=== PATIENT | female | born 1980 | race Caucasian/White ===

== ENCOUNTER 2016-05-25 09:20 | Emergency (ER) | payer SELFPAY ==
[~2016-05-25] VITALS: Ht 167.6 cm; Wt 59.5 kg
[~2016-05-25 09:20] MED LIST: ALBU8.5H3 INH; DIVA500T31 PO; HYDR-4246 PO; ONDA4TAB7 PO
[2016-05-25 09:25] VITALS: Ht 167.6 cm; Wt 59.5 kg
--- OUTSIDE RECORDS SUMMARY | 2016-05-25 09:32 | XMS REPORT | Referral Summary ---
Author Author [facility] Organization [facility] Address Unknown Phone Unavailable Care Team Providers Care Desk Pen Set Assembler Name Role Phone Page, B Primary Care Physician [phone] Encounter VC Date(s): 11/11/14 - 11/11/14 [facility] [address] [place] [address] Discharge Diagnosis: Low back pain Discharge Disposition: 01-Home or Self Care Attending Physician: Han Bob MD Admitting Physician: Han Bob MD Vital Signs Most recent to 1 oldest [Reference Range]: Temperature Oral 36.3 degC [35.8-37.3 degC] (11/11/14 5:29 PM) Peripheral Pulse 105 bpm Rate [60-100 bpm] *HI* (11/11/14 5:29 PM) Respiratory Rate 24 br/min [14-20 br/min] *HI* (11/11/14 5:29 PM) Blood Pressure 110/66 mmHg [90-140/60-90 mmHg] (11/11/14 5:29 PM) SpO2 98 % (11/11/14 5:29 PM) Problem List Condition Effective Dates Status Health Status Informant Asthma(Confirmed) Active patient Chronic back Active patient pain(Confirmed) Ovarian Active patient cyst(Confirmed) Epilepsy(Confirmed) Active patient Hernia(Confirmed) Active patient Allergies, Adverse Reactions, Alerts Substance Reaction Severity Status penicillin anaphylaxis Severe Active Anaphylactic reaction traMADol triggers siezure activity Severe Active Adverse Reaction Seizure Medications Advair Diskus 100 mcg-50 mcg inhalation powder puffs, Inhalation, BID, 0 Refill(s) Start Date: 09/26/13 Status: Ordered cyclobenzaprine 10 mg oral tablet 10 mg 1 tabs, Oral, TID, as needed for spasm, X 5 days, # 15 tabs, 0 Refill(s) Start Date: 11/11/14 Stop Date: 11/16/14 Status: Ordered ibuprofen 800 mg oral tablet 800 mg 1 tabs, Oral, TID, as needed for pain, # 30 tabs, 0 Refill(s) Start Date: 11/11/14 Stop Date: 11/21/14 Status: Ordered Levsin 0.125 mg oral tablet 0.125 mg 1 tabs, Oral, QID, # 120 tabs, 0 Refill(s) Start Date: 10/01/14 Status: Ordered Petrolia 7.5 mg-325 mg oral tablet 1 tabs, Oral, q6hr, Pain Moderate (4-6), 0 Refill(s), Indication: abdominal pain Start Date: 02/10/14 Status: Ordered Percocet 5/325 oral tablet tabs, Oral, q6hr, 0 Refill(s) Start Date: 07/18/14 Status: Ordered Premarin 1.25 mg, Oral, Daily, 0 Refill(s) Start Date: 08/03/14 Status: Ordered ProAir HFA puffs, Inhalation, QID, 0 Refill(s) Start Date: 09/26/13 Status: Ordered SEROquel 100 mg oral tablet 200 mg 2 tabs, Oral, Daily, 0 Refill(s) Start Date: 08/03/14 Status: Ordered Zofran ODT 4 mg oral tablet, disintegrating 4 mg 1 tabs, Oral, q8hr, # 10 tabs, 0 Refill(s) Start Date: 10/01/14 Status: Ordered Results No data available for this section Immunizations No data available for this section Procedures Procedure Date Related Diagnosis Body Site Examination Under Anesthesia1 08/03/14 Sigmoidoscopy Flexible Dilatation2 08/03/14 Colonoscopy3 02/10/14 Esophagogastroduodenoscopy - SN4 02/10/14 Examination Under Anesthesia5 02/10/14 Bilateral tubal ligation section Colostomy Exploratory laparotomy hysterectomy6 Repair of rectocele Take-down of colostomy 1auto-populated from documented surgical case 2auto-populated from documented surgical case 3auto-populated from documented surgical case 4auto-populated from documented surgical case 5auto-populated from documented surgical case 2012 Social History Social History Type Response Smoking Status Current every day smoker; Tobacco use per day: Less than Pack Assessment and Plan No data available for this section
--- OUTSIDE RECORDS SUMMARY | 2016-05-25 09:32 | XMS REPORT | Continuity of Care Document ---
Author Author [facility] Organization [facility] Address Unknown Phone Unavailable Care Team Providers Care Director Trust Name Role Phone OTHER Primary Care Physician [phone] Insurance Providers Payer Name Policy Number Subscriber Name Relationship [employer] [id number] Indigo Gee 16 Self Problems Medical Problems Problem Onset Date Status ABDOMINAL PAIN - ACUTE ON CHRONIC Unknown Active ABD PAIN, URI, CONSTIPATION Unknown Active ABDOMINAL PAIN - ACUTE ON CHRONIC Unknown Active Constipation Unknown Active Viral Infection not otherwise specified Unknown Active Contusion Unknown Active Hernia Unknown Active Vomiting Unknown Active Abdominal pain, chronic, generalized Unknown Active Hernia Unknown Active Sacral fracture, closed Unknown Active Abdominal pain Unknown Active Nausea Unknown Active Sacral fracture, closed Unknown Active Abdominal pain Unknown Active Nausea and vomiting Unknown Active Medications Medication Dose Route Sig Days/Qty Instructions Order Date Discontinued Date Status Divalproex Sodium 1,000 Mg PO TWICE A DAY 07/19/13 Active Albuterol Sulfate 2 Puff INH NEEDED PRN SHORTNESS OF AIR 09/28/13 Active Ondansetron 1 Tab PO Q6H/0300,0900,1500,2100 PRN NAUSEA &/OR VOMITING 20 Qty Oral disintegrating tablet 09/28/13 Active Hydrocodone/Acetaminophen 1-2 Tab PO Every 6 Hours PRN PAIN 30 Qty 01/01 Active Social History Social History Problem Response Recorded Date/Time Smoking Status Current every day smoker 07/19/2013 7:05pm Hx Substance Use No 09/28/2013 2:04pm Hx Alcohol Use No 09/28/2013 2:04pm Query Response Start Date Stop Date Smoking Status Current every day smoker Hospital Discharge Instructions No hospital discharge instructions. Plan of Care No plan of care. Functional Status Query Response Date Recorded Physical Hygiene Self September 28, 2013 2:04pm Disabilities None September 28, 2013 2:04pm Devices Used None September 28, 2013 2:04pm Dressing Self September 28, 2013 2:04pm Ambulation Self September 28, 2013 2:04pm Diet Self September 28, 2013 2:04pm Mental Status Alert Oriented September 28, 2013 2:04pm Disabilities None September 28, 2013 2:04pm Devices Used None September 28, 2013 2:04pm Physical Hygiene Self September 28, 2013 2:04pm Dressing Self September 28, 2013 2:04pm Ambulation Self September 28, 2013 2:04pm Diet Self September 28, 2013 2:04pm Allergies, Adverse Reactions, Alerts Allergen Type Severity Reaction Status Last Updated Penicillin Allergy Unknown Active 09/28/13 Tramadol Allergy Unknown Active 09/28/13 Immunizations Name Given Type Hx Influenza Vaccination Y FALL 2012 Historical Hx Influenza Vaccination Y FALL 2012 Historical Vital Signs Acute Vital Signs Vital Response Date/Time Temperature (Fahrenheit) 98.4 deg F (96.8 - 99.1) Temperature (Calculated Celsius) 36.66711 degrees C (36.0 - 37.3) Pulse Rate (adult) 73 bpm (60 - 100) Respiratory Rate 14 breaths/min (10 - 20) O2 Sat by Pulse Oximetry 99 % (90 - 100) Blood Pressure 106/56 mm Hg Height 5 ft 5 in Weight 121 lb Body Mass Index 20.0 kg/m^2 Results Test Source Date Result Interp. Ref. Range Comments Alanine Aminotransferase (ALT/SGPT) September 28, 2013 3:23pm 26 U/L N 9- 52 Albumin September 28, 2013 3:23pm 4.2 G/DL N 3.5-5.0 Albumin/Globulin Ratio September 28, 2013 3:23pm 1.6 RATIO N 1.1-2.2 Alkaline Phosphatase September 28, 2013 3:23pm 69 U/L N 38-126 Amylase Level September 28, 2013 3:23pm 53 U/L N 30-110 Anion Gap September 28, 2013 3:23pm 10 MEQ/L N 5-15 Aspartate Amino Transf (AST/SGOT) September 28, 2013 3:23pm 17 U/L N 14-36 BUN/Creatinine Ratio September 28, 2013 3:23pm 16 RATIO N 6-26 Basophils # (Auto) September 28, 2013 3:23pm 0.0 T/MM3 N 0-0.2 Basophils (%) (Auto) September 28, 2013 3:23pm 0.4 % N 0-2 Blood Urea Nitrogen September 28, 2013 3:23pm 13.0 MG/DL N 7-17 Calcium Level September 28, 2013 3:23pm 9.7 MG/DL N 8.4-10.2 Calculated Osmolality September 28, 2013 3:23pm 273 MOSM/KG N 261-280 Carbon Dioxide Level September 28, 2013 3:23pm 25 MEQ/L N 22-30 Chloride Level September 28, 2013 3:23pm 107 MEQ/L N 98-107 Creatinine September 28, 2013 3:23pm 0.8 MG/DL N 0.7-1.2 Eosinophils # (Auto) September 28, 2013 3:23pm 0.1 T/MM3 N 0-0.5 Eosinophils (%) (Auto) September 28, 2013 3:23pm 1.6 % N 0-4 Globulin September 28, 2013 3:23pm 2.6 G/DL N 2.4-3.6 Glucose Level September 28, 2013 3:23pm 91 MG/DL N 65-110 Group A Streptococcus Screen February 21, 2013 2:15pm Negative - Strep culture confirmation to follow Hematocrit September 28, 2013 3:23pm 38.8 % N 36-46 Hemoglobin September 28, 2013 3:23pm 13.3 GM/DL N 12-16 Influenza Type A Antigen February 21, 2013 2:15pm Negative - Negative for Flu A protein antigen. Assay sensitivity isbetween 65-83%. A negative result does not exclude influenza virus infection. "Influenza FA" may be ordered if clinical presentation warrants confirmatory testing. Influenza Type B Antigen February 21, 2013 2:15pm Negative - Negative for Flu B protein antigen. Assay sensitivity isbetween 65-83%. A negative result does not exclude influenza virus infection. "Influenza FA" may be ordered if clinical presentation warrants confirmatory testing. Lipase September 28, 2013 3:23pm 70 U/L N 23-300 Lymphocytes # (Auto) September 28, 2013 3:23pm 2.1 T/MM3 N 1-4.8 Lymphocytes (%) (Auto) September 28, 2013 3:23pm 29.3 % N 23-45 Mean Corpuscular Hemoglobin September 28, 2013 3:23pm 32.0 UUG N 26-34 Mean Corpuscular Hemoglobin Concent September 28, 2013 3:23pm 34.3 GM/DL N 31-37 Mean Corpuscular Volume September 28, 2013 3:23pm 93.3 UM3 N 80-100 Mean Platelet Volume September 28, 2013 3:23pm 10.2 UM3 N 9.4-12.4 Monocytes # (Auto) September 28, 2013 3:23pm 0.4 T/MM3 N 0-0.8 Monocytes (%) (Auto) September 28, 2013 3:23pm 5.7 % N 0-9.0 Neutrophils # (Auto) September 28, 2013 3:23pm 4.4 T/MM3 N 1.8-7.7 Neutrophils (%) (Auto) September 28, 2013 3:23pm 62.9 % N 33-66 Platelet Count September 28, 2013 3:23pm 235 T/MM3 N 130-400 Potassium Level September 28, 2013 3:23pm 4.0 MEQ/L N 3.6-5 RDW Standard Deviation September 28, 2013 3:23pm 39.7 FL N 36.9-50.2 Red Blood Count September 28, 2013 3:23pm 4.16 M/MM3 N 4.00-5.20 Sodium Level September 28, 2013 3:23pm 142 MEQ/L N 134-144 Total Bilirubin September 28, 2013 3:23pm 0.60 MG/DL N 0.20-1.30 Total Protein September 28, 2013 3:23pm 6.8 G/DL N 6.3-8.2 Urine Bacteria September 16, 2013 9:40pm Trace H - Has specimen been collected/obtained? Y Urine Bilirubin September 28, 2013 3:30pm Negative - Has specimen been collected/obtained? Y Urine Blood September 28, 2013 3:30pm Negative - Has specimen been collected/obtained? Y Urine Collection Type September 28, 2013 3:30pm Voided-not cc-midstr - Has specimen been collected/obtained? Y Urine Color September 28, 2013 3:30pm Yellow - Has specimen been collected/obtained? Y Urine Glucose (UA) September 28, 2013 3:30pm Negative - Has specimen been collected/obtained? Y Urine Ketones September 28, 2013 3:30pm Negative - Has specimen been collected/obtained? Y Urine Leukocyte Esterase September 28, 2013 3:30pm Negative - Has specimen been collected/obtained? Y Urine Mucus September 16, 2013 9:40pm Present - Has specimen been collected/obtained? Y Urine Nitrite September 28, 2013 3:30pm Negative - Has specimen been collected/obtained? Y Urine Protein September 28, 2013 3:30pm Negative - Has specimen been collected/obtained? Y Urine RBC September 16, 2013 9:40pm 0-1 /HPF - Has specimen been collected /obtained? Y Urine Specific [place] September 28, 2013 3:30pm 1.020 - Has specimen been collected/obtained? Y Urine Squamous Epithelial Cells September 16, 2013 9:40pm 0-5 - Has specimen been collected/obtained? Y Urine Turbidity September 28, 2013 3:30pm Sl cloudy - Has specimen been collected/obtained? Y Urine Urobilinogen September 28, 2013 3:30pm 1.0 EU/DL - Has specimen been collected/obtained? Y Urine WBC September 16, 2013 9:40pm 0-1 /HPF - Has specimen been collected /obtained? Y Urine pH September 28, 2013 3:30pm 7.5 - Has specimen been collected/ obtained? Y Valproic Acid (Depakene) Level February 21, 2013 2:00pm < 10.0 UG/ML L 50 -120 White Blood Count September 28, 2013 3:23pm 7.0 T/MM3 N 4.5-11.0 Chemistry Specimen Hemolysis September 28, 2013 3:23pm < 15 0-25 0-25: No Hemolysis.26-70: Slight Hemolysis - can falsely elevate K and Urine Protein. 71-285: Moderate Hemolysis - can falsely elevate K, Troponin I, CA 19-9, PTH, CSF GLucose, and Urine Protein, and can falsely decrease Phenytoin. 286-999: Gross Hemolysis - can falsely elevate K, Troponin I, CA 19-9, PTH, CSF Glucose, and Urine Protine, and can falsely decrease Phenytoin. Recommend specimen recollection. Urinalysis Comment September 28, 2013 3:30pm Microscopic not ind. - Has specimen been collected/obtained? Y Turbidity September 28, 2013 3:23pm < 20 0-20 Glomerular Filtration Rate Calc September 28, 2013 3:23pm 82 - Immature Granulocyte # (Auto) September 28, 2013 3:23pm 0.01 T/MM3 N 0.00- 0.03 Immature Granulocyte % (Auto) September 28, 2013 3:23pm 0.1 % N 0.0-0.5 Icterus Index September 28, 2013 3:23pm < 2 0-7 Group A Streptococcus Culture Throat February 21, 2013 2:28pm Name: INDIGO GEE Unit #: [id number] : 1980 Sex: F Loc / Svc: ED DOS: 09/28/13 Signed Report #: [id number] DIAGNOSTIC IMAGING REPORT TYPE OF EXAM: ABDOMEN ACUTE (INC. CHEST) Dictated By: PORTER CARRANZA MD INDICATION: ITS.REASON: vomiting and abdominal for 4 days ABDOMEN ACUTE (INC. CHEST): Comparison: September 16, 2013 FINDINGS: The lungs are clear. There is no abnormal airspace opacity, pleural effusion or pneumothorax identified. The heart size, pulmonary vasculature and mediastinum are within normal limits. There is no free air on the upright view. The bowel gas pattern is nonobstructive and nonspecific. Gas is seen in nondilated small and large bowel to the level of the rectum. Moderate stool is seen throughout the colon. Surgical suture and clips in the pelvis. IMPRESSION: 1. No acute cardiopulmonary abnormality. 2. No evidence of acute obstruction or free air. . 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
--- OUTSIDE RECORDS SUMMARY | 2016-05-25 09:32 | XMS REPORT | Referral Summary ---
Author Author [facility] Organization [facility] Address Unknown Phone Unavailable Care Team Providers Care Organic Search Lead Name Role Phone Page, B Primary Care Physician [phone] Encounter VC Date(s): 08/21/14 - 08/21/14 [facility] [address] [place] [address] Discharge Diagnosis: Chronic abdominal pain Final: ABDOMINAL PAIN, OTHER SPECIFIED SITE; MULTIPLE SITES Final: Other chronic pain Final: CONSTIPATION, UNSPECIFIED Discharge Disposition: 01-Home or Self Care Attending Physician: Harvinder Renee MD Admitting Physician: Harvinder Renee MD Vital Signs Most recent to 1 oldest [Reference Range]: Temperature Oral 36.5 degC [35.8-37.3 degC] (08/21/14 10:21 AM) Peripheral Pulse 59 bpm Rate [60-100 bpm] *LOW* (08/21/14 11:46 AM) Respiratory Rate 16 br/min [14-20 br/min] (08/21/14 11:46 AM) Blood Pressure 101/69 mmHg [90-140/60-90 mmHg] (08/21/14 11:46 AM) SpO2 97 % (08/21/14 11:46 AM) Problem List Condition Effective Dates Status Health [...] 0 Refill(s) Start Date: 09/26/13 Status: Ordered ibuprofen 800 mg oral tablet 800 mg 1 tabs, Oral, TID, as needed for pain, # 30 tabs, 0 Refill(s) Start Date: 11/11/14 Stop Date: 11/21/14 Status: Ordered Levsin 0.125 mg oral tablet 0.125 mg 1 tabs, Oral, QID, # 120 tabs, 0 Refill(s) Start Date: 10/01/14 Status: Ordered Tamms 7.5 mg-325 mg oral tablet 1 tabs, [...] Refill(s) Start Date: 10/01/14 Status: Ordered Results Hematology Most recent to 1 oldest [Reference Range]: WBC [4.8-10.8 5.2 10*3/uL 10*3/uL] (08/21/14 10:54 AM) RBC [4.00-5.20 4.40 10*6/uL 10*6/uL] (08/21/14 10:54 AM) Hgb [12.0-16.0 13.8 gm/dL gm/dL] (08/21/14 10:54 AM) Hct [37.0-47.0 %] 40.3 % (08/21/14 10:54 AM) MCV [82.0-99.0 fL] 91.6 fL (08/21/14 10:54 AM) MCH [27.0-32.0 pg] 31.4 pg (08/21/14 10:54 AM) MCHC [32.0-36.0 34.2 gm/dL gm/dL] (08/21/14 10:54 AM) RDW [11.5-14.5 %] 12.5 % (08/21/14 10:54 AM) Platelet [150-400 200 10*3/uL 10*3/uL] (08/21/14 10:54 AM) MPV [9.4-12.4 fL] 10.5 fL (08/21/14 10:54 AM) Immature 0.2 % Granulocytes (08/21/14 10:54 AM) [0.0-1.0 %] Neutrophils [51-75 40 % %] *LOW* (08/21/14 10:54 AM) Lymphocytes [20-46 50 % %] *HI* (08/21/14 10:54 AM) Monocytes [4-11 %] 7 % (08/21/14 10:54 AM) Eosinophils [0-4 %] 4 % (08/21/14 10:54 AM) Basophils [0-2 %] 0 % (08/21/14 10:54 AM) Neutro Absolute 2.08 10*3 [1.90-7.00 10*3] (08/21/14 10:54 AM) Lymph Absolute 2.60 10*3 [0.80-3.30 10*3] (08/21/14 10:54 AM) [place] Absolute 0.34 10*3 [0.30-1.00 10*3] (08/21/14 10:54 AM) Eos Absolute 0.20 10*3 [0.00-0.50 10*3] (08/21/14 10:54 AM) Baso Absolute 0.02 10*3 [0.00-0.20 10*3] (08/21/14 10:54 AM) Nucleated RBC 0.0 /100 WBC Automated [0 /100 (08/21/14 10:54 AM) WBC] Chemistry Most recent to 1 oldest [Reference Range]: Sodium Lvl [136-144 139 mEq/L mEq/L] (08/21/14 10:54 AM) Potassium Lvl 4.0 mEq/L [3.6-5.1 mEq/L] (08/21/14 10:54 AM) Chloride [99-109 107 mEq/L mEq/L] (08/21/14 10:54 AM) CO2 [22-32 mEq/L] 27 mEq/L (08/21/14 10:54 AM) AGAP [3-20] 5 (08/21/14 10:54 AM) BUN [4-20 mg/dL] 9 mg/dL (08/21/14 10:54 AM) Glucose Lvl [70-100 76 mg/dL mg/dL] (08/21/14 10:54 AM) Creatinine Lvl 0.83 mg/dL [0.44-1.03 mg/dL] (08/21/14 10:54 AM) eGFR [>60] >60 1 (08/21/14 10:54 AM) Calcium Lvl 9.4 mg/dL [8.6-10.0 mg/dL] (08/21/14 10:54 AM) Albumin Lvl [3.5-4.8 3.6 gm/dL gm/dL] (08/21/14 10:54 AM) Total Protein 6.1 gm/dL [6.1-7.9 gm/dL] (08/21/14 10:54 AM) Globulin [1.9-4.3 2.5 gm/dL gm/dL] (08/21/14 10:54 AM) ALT [14-54 U/L] 12 U/L *LOW* (08/21/14 10:54 AM) AST [15-41 U/L] 17 U/L (08/21/14 10:54 AM) Alk Phos [26-104 64 U/L U/L] (08/21/14 10:54 AM) Bili Total [0.2-1.2 0.8 mg/dL 2 mg/dL] (08/21/14 10:54 AM) Lipase Lvl [8-48 24 U/L U/L] (08/21/14 10:54 AM) 1Result Comment: Multiply eGFR results by 1.21 for race. 2Result Comment: Naproxen, specifically the metabolite O-desmethylnaproxen, may cause spurious elevation in Total Bilirubin levels. Urinalysis Most recent to 1 oldest [Reference Range]: UA Color Yellow (08/21/14 10:53 AM) UA Appear Turbid *ABN* (08/21/14 10:53 AM) UA pH [5.0-8.0] 9.0 *HI* (08/21/14 10:53 AM) UA Leuk Est Negative [Negative] (08/21/14 10:53 AM) UA Nitrite Negative [Negative] (08/21/14 10:53 AM) UA Protein Negative [Negative] (08/21/14 10:53 AM) UA Glucose Negative [Negative] (08/21/14 10:53 AM) UA Ketones Negative [Negative] (08/21/14 10:53 AM) UA Urobilinogen 1.0 mg/dL [<1.0 mg/dL] (08/21/14 10:53 AM) UA Bili [Negative] Negative (08/21/14 10:53 AM) UA Blood [Negative] Negative (08/21/14 10:53 AM) UA Spec Grav 1.017 [1.003-1.030] (08/21/14 10:53 AM) Type Clean Catch (08/21/14 10:53 AM) Immunizations No data available for this section [...] surgical case 5auto-populated from documented surgical case 6April 2012 Social History Social History Type Response Smoking Status Current every day smoker; Tobacco use per day: Less than Pack Assessment and Plan No data available for this section
--- OUTSIDE RECORDS SUMMARY | 2016-05-25 09:32 | XMS REPORT ---
Author Author [place]/[facility], [facility] - Organization Unknown Address Unknown Phone Unavailable Allergies, Adverse Reactions, Alerts * Toradol causes Mild Adverse Reaction. * tramadol causes Mild Adverse Reaction. * Penicillins causes Severe anaphylaxis. * No Latex Allergy. * No IV Contrast Allergy. * No Known Food Allergies. Problems * Benzodiazepine Overdose* Status:Active. * Drug Dependence* Status:Inactive. * Drug Overdose - Suicide* Status:Active. * Falls* Status:Inactive. * Fluid Volume Impairment* Status:Active. * Hysterectomy* Status:Resolved. * Pain* Status:Active. * Substance Abuse* Status:Inactive. Procedures No Procedures Documented. Medication It is the responsibility of the patient or patient telemarketing representative to confirm the list of medications with either the patient's personal care provider or the patient's follow-up care provider to ensure the patient has an appropriate list of medications to take at home. Discharge medications* estradiol 2 mg Tablet, Ordered By: MARSHALL PRINGLE Directions: 1 tablet oral daily * HYDROcodone-acetaminophen (Lortab) 7.5 mg-500 mg Tablet, Ordered By: MARSHALL PRINGLE Directions: 1 tablet oral every four hours * oxyCODONE-acetaminophen (Percocet) 5 mg-325 mg Tablet, Ordered By: MARSHALL PRINGLE Directions: 1 tablet oral every four hours PRN pain * fluticasone-salmeterol (Advair Diskus) 250 mcg-50 mcg/Dose Disk with Device, Ordered By: MARSHALL PRINGLE Directions: 1 puff by inhalation twice a day * albuterol sulfate (ProAir HFA) 90 mcg HFA Aerosol Inhaler, Ordered By: MARSHALL PRINGLE Directions: 2 to 3 puff by inhalation every four hours PRN shortness of breath * Calcium OTC 1 tablet oral daily; last taken at home: 08/01/2012 AM * Women's Laxative OTC 1 tablet oral daily; last taken at home: 08/01/2012 AM * Advanced Fiber Gummies 2 Gummies oral daily; last taken at home: 08/01/2012 AM * FLUoxetine (PROzac) 40 mg Capsule, Ordered By: MARSHALL PRINGLE Directions: 1 capsule oral daily * divalproex (Depakote ER) 500 mg Tablet Extended Release 24 hr, Ordered By: MARSHALL PRINGLE Directions: 2 tablet oral twice a day * hydrOXYzine pamoate 50 mg Capsule, Ordered By: MARSHALL PRINGLE Directions: 2 capsule oral daily at bedtime PRN anxiety * hydrOXYzine pamoate 50 mg Capsule, Ordered By: MARSHALL PRINGLE Directions: 1 capsule oral every twelve hours PRN anxiety * divalproex 500 mg Tablet Extended Release 24 hr, Ordered By: MARSHALL PRINGLE Directions: 2 tablet oral daily at bedtime * divalproex 500 mg Tablet Extended Release 24 hr, Ordered By: MARSHALL PRINGLE Directions: 1 tablet oral daily Stopped medications* None Results LAB--BEDSIDE TESTING from 08/01/2012 3:23 PMTotal CO2 Venous 23 mEq/L L (25-29 mEq/L) Sodium Venous 140 mEq/L (136-144 mEq/L) Potassium Venous 4.0 mEq/L (3.6-5.1 mEq/L) HGB Venous NPT 8.8 g/dL L (12.0-16.0 g/dL) HCT Venous NPT 26.0 % L (37.0-47.0 %) Glucose Venous 87 mg/dL (70-100 mg/dL) Creatinine Venous NPT 1.1 mg/dL H (0.4-1.0 mg/dL) Venous CL NPT 107 mEq/L (99-109 mEq/L) Calcium Ionized Venous 1.15 mmol/L L (1.19-1.41 mmol/L) BUN Venous NPT 20 mg/dl (4-20 mg/dl) Anion Gap NPT 10 (3-20 ) LAB--BEDSIDE TESTING from 08/01/2012 5:58 PMGlucose NPT 88 mg/dL (70-100 mg/dL) LAB--CHEMISTRY from 08/01/2012 3:25 PMAnion Gap 3 (3-20 ) Albumin 2.6 g/dL L (3.5-4.8 g/dL) Alkaline Phosphatase 38 U/L (26-104 U/L) ALT (SGPT) 21 U/L (14-54 U/L) AST (SGOT) 26 U/L (15-41 U/L) Bilirubin Total 0.4 mg/dL (0.2-1.2 mg/dL) BUN 19 mg/dL (4-20 mg/dL) Calcium 7.6 mg/dL L (8.6-10.0 mg/dL) Chloride 110 mEq/L H (99-109 mEq/L) CO2 27 mEq/L (22-32 mEq/L) Creatinine 0.90 mg/dL (0.44-1.03 mg/dL) eGFR >60 (>60- ) Globulin 2.3 g/dL (1.9-4.3 g/dL) Glucose 90 mg/dL (70-100 mg/dL) Potassium 4.0 mEq/L (3.6-5.1 mEq/L) Sodium 140 mEq/L (136-144 mEq/L) Protein 4.9 g/dL L (6.1-7.9 g/dL) LAB--CHEMISTRY from 08/02/2012 2:56 AMAnion Gap 1 L (3-20 ) Albumin 2.4 g/dL L (3.5-4.8 g/dL) Alkaline Phosphatase 54 U/L (26-104 U/L) ALT (SGPT) 61 U/L H (14-54 U/L) AST (SGOT) 66 U/L H (15-41 U/L) Bilirubin Total 0.4 mg/dL (0.2-1.2 mg/dL) BUN 13 mg/dL (4-20 mg/dL) Calcium 7.6 mg/dL L (8.6-10.0 mg/dL) Chloride 111 mEq/L H (99-109 mEq/L) CO2 26 mEq/L (22-32 mEq/L) Creatinine 0.82 mg/dL (0.44-1.03 mg/dL) eGFR >60 (>60- ) Globulin 2.2 g/dL (1.9-4.3 g/dL) Glucose 114 mg/dL H (70-100 mg/dL) Potassium 3.7 mEq/L (3.6-5.1 mEq/L) Sodium 138 mEq/L (136-144 mEq/L) Protein 4.6 g/dL L (6.1-7.9 g/dL) TSH (with reflex Free T4) 1.01 uIU/mL (0.35-5.50 uIU/mL) LAB--HEMATOLOGY from 08/01/2012 3:25 PMAbsolute Basophils 0.02 THOUS (0.00-0.20 THOUS) Absolute Eosinophils 0.06 THOUS (0.00-0.50 THOUS) Absolute Lymphocytes 1.24 THOUS (0.80-3.30 THOUS) Absolute Monocytes 1.06 THOUS H (0.30-1.00 THOUS) Absolute Neutrophils 5.68 THOUS (1.90-7.00 THOUS) HCT 29.5 % L (37.0-47.0 %) HGB 9.5 g/dl L (12.0-16.0 g/dl) MCH 30.4 pg (27.0-32.0 pg) MCHC 32.2 g/dL (32.0-36.0 g/dL) MCV 94.6 fL (82.0-99.0 fL) MPV 11.2 fL (9.4-12.4 fL) Platelet Count 126 K/uL L (150-400 K/uL) RBC 3.12 M/uL L (4.00-5.20 M/uL) RDW 13.7 % (11.5-14.5 %) WBC 8.1 K/uL (4.8-10.8 K/uL) Basophils 0 % (0-2 %) Eosinophils 1 % (0-4 %) Immature Granulocytes 0.1 % (0.0-1.0 %) Lymphocytes 15 % L (20-46 %) Monocytes 13 % H (4-11 %) Neutrophils 71 % (51-75 %) LAB--HEMATOLOGY from 08/02/2012 2:56 AMHCT 33.1 % L (37.0-47.0 %) HGB 10.3 g/dl L (12.0-16.0 g/dl) MCH 29.7 pg (27.0-32.0 pg) MCHC 31.1 g/dL L (32.0-36.0 g/dL) MCV 95.4 fL (82.0-99.0 fL) MPV 11.6 fL (9.4-12.4 fL) Platelet Count 142 K/uL L (150-400 K/uL) RBC 3.47 M/uL L (4.00-5.20 M/uL) RDW 14.3 % (11.5-14.5 %) WBC 5.6 K/uL (4.8-10.8 K/uL) LAB--TOXICOLOGY & THERAPEUTIC DRUGS from 08/01/2012 3:25 PMAcetaminophen (Tylenol ) Level 19 mcg/mL (10-30 mcg/mL) Salicylate <4 mg/dL (0-30 mg/dL) LAB--TOXICOLOGY & THERAPEUTIC DRUGS from 08/01/2012 4:34 PMAcetaminophen (Tylenol ) Level 15 mcg/mL (10-30 mcg/mL) Valproic Acid <10 ug/mL L (50-125 ug/mL) LAB--TOXICOLOGY & THERAPEUTIC DRUGS from 08/02/2012 2:56 AMAcetaminophen (Tylenol ) Level <10 mcg/mL (10-30 mcg/mL)
--- OUTSIDE RECORDS SUMMARY | 2016-05-25 09:32 | XMS REPORT | Referral Summary ---
Author Author [facility] Organization [facility] Address Unknown Phone Unavailable Care Team Providers Care Bankruptcy Manager Name Role Phone Page, B Primary Care Physician [phone] Encounter VC Date(s): 11/11/14 - 11/11/14 [facility] [address] [place] [address] FG Final: LUMBAGO Final: TOBACCO USE DISORDER Discharge Diagnosis: Low back pain Discharge Disposition: [...] 0 Refill(s) Start Date: 10/01/14 Status: Ordered [place] 7.5 mg-325 mg oral tablet 1 tabs, [...] surgical case 5auto-populated from documented surgical case pril 2012 Social History Social History Type Response Smoking Status Current every day smoker; Tobacco use per day: Less than Pack Assessment and Plan No data available for this section
--- OUTSIDE RECORDS SUMMARY | 2016-05-25 09:32 | XMS REPORT ---
Author Author [place]/[facility], [facility] - Organization Unknown Address Unknown Phone Unavailable Allergies, Adverse Reactions, Alerts * Toradol causes Mild Adverse Reaction. * tramadol causes Mild Adverse Reaction. * Penicillins causes Severe anaphylaxis. * No Latex Allergy. * No IV Contrast Allergy. * No Known Food Allergies. Problems * Drug Dependence* Status:Inactive. * Falls* Status:Inactive. * Fluid Volume Impairment* Status:Active. * Hysterectomy* Status:Resolved. * Pain* Status:Active. * Substance Abuse* Status:Inactive. Procedures No Procedures Documented. Medication It is the responsibility of the patient or patient customer account representative to confirm the list of medications with either the patient's personal care provider or the patient's follow-up care provider to ensure the patient has an appropriate list of medications to take at home. Discharge medications* albuterol sulfate (ProAir HFA) 90 mcg HFA Aerosol Inhaler , Ordered By: RENEA DAWKINS Directions: 2 to 3 puff by inhalation every four hours PRN shortness of breath * divalproex (Depakote ER) 500 mg Tablet Extended Release 24 hr, Ordered By: RENEA DAWKINS Directions: 2 tablet oral twice a day * FLUoxetine (PROzac) 40 mg Capsule, Ordered By: RENEA DAWKINS Directions: 1 capsule oral daily * hydrOXYzine pamoate 50 mg Capsule, Ordered By: RENEA DAWKINS Directions: 1 capsule oral every twelve hours * hydrOXYzine pamoate 50 mg Capsule, Ordered By: RENEA DAWKINS Directions: 2 capsule oral daily at bedtime * fluticasone-salmeterol (Advair Diskus) 250 mcg-50 mcg/Dose Disk with Device, Ordered By: RENEA DAWKINS Directions: 1 puff by inhalation twice a day * ibuprofen 800 mg Tablet, Ordered By: RENEA DAWKINS Directions: 1 tablet oral every eight hours * HYDROmorphone (Dilaudid) 4 mg Tablet, Ordered By: RENEA DAWKINS Directions: 1 tablet oral every four hours PRN pain * estradiol 1 mg Tablet, Ordered By: RENEA DAWKINS Directions: 1 tablet oral daily Stopped medications* ranitidine HCl (ZANtac) 150 mg Tablet Directions: 1 tablet oral daily PRN indigestion Results LAB--BEDSIDE TESTING from 06/05/2012 5:55 AMGlucose NPT 90 mg/dL (70-100 mg/dL) LAB--BEDSIDE TESTING from 06/05/2012 5:58 AMPregnancy Screen, Urine NPT Negative LAB--BLOOD BANK from 06/05/2012 5:40 AMABO and Rh A POS Antibody Screen (Indirect Caprice) NEG LAB--HEMATOLOGY from 06/05/2012 4:01 PMHCT 36.7 % L (37.0-47.0 %) HGB 12.0 g/dl (12.0-16.0 g/dl)
--- OUTSIDE RECORDS SUMMARY | 2016-05-25 09:32 | XMS REPORT | Referral Summary ---
Author Author [facility] Organization [facility] Address Unknown Phone Unavailable Care Team Providers Care Hand Thermal Cutter Name Role Phone Page, B Primary Care Physician [phone] Encounter VC Date(s): 08/06/14 - 08/06/[address] [facility] [address] [place] [address] [phone] Discharge Diagnosis: Abdominal pain Final: ABDOMINAL PAIN, LEFT LOWER QUADRANT Discharge Disposition: 01-Home or Self Care Attending Physician: Marcos Love DO Admitting Physician: Marcos Love DO Vital Signs Most recent to 1 oldest [Reference Range]: Temperature Oral 36.7 degC [35.8-37.3 degC] (08/06/14 12:21 PM) Peripheral Pulse 65 bpm Rate [60-100 bpm] (08/06/14 4:52 PM) Heart Rate Monitored 68 bpm [60-100 bpm] (08/06/14 3:27 PM) Respiratory Rate 16 br/min [14-20 br/min] (08/06/14 4:52 PM) Blood Pressure 102/63 mmHg [90-140/60-90 mmHg] (08/06/14 4:52 PM) SpO2 97 % (08/06/14 4:52 PM) Problem List Condition Effective Dates Status [...] 0 Refill(s) Start Date: 10/01/14 Status: Ordered [place] 7.5 mg-325 mg oral tablet 1 tabs, [...] to 1 oldest [Reference Range]: WBC [4.8-10.8 7.8 10*3/uL 10*3/uL] (08/06/14 12:55 PM) RBC [4.00-5.20 4.25 10*6/uL 10*6/uL] (08/06/14 12:55 PM) Hgb [12.0-16.0 13.5 gm/dL gm/dL] (08/06/14 12:55 PM) Hct [37.0-47.0 %] 38.1 % (08/06/14 12:55 PM) MCV [82.0-99.0 fL] 89.6 fL (08/06/14 12:55 PM) MCH [27.0-32.0 pg] 31.8 pg (08/06/14 12:55 PM) MCHC [32.0-36.0 35.4 gm/dL gm/dL] (08/06/14 12:55 PM) RDW [11.5-14.5 %] 12.4 % (08/06/14 12:55 PM) Platelet [150-400 317 10*3/uL 10*3/uL] (08/06/14 12:55 PM) MPV [9.4-12.4 fL] 9.9 fL (08/06/14 12:55 PM) Immature 0.1 % Granulocytes (08/06/14:55 PM) [0.0-1.0 %] Neutrophils [51-75 45 % %] *LOW* (08/06/14 12:55 PM) Lymphocytes [20-46 45 % %] (08/06/14 12:55 PM) Monocytes [4-11 %] 5 % (08/06/14 12:55 PM) Eosinophils [0-4 %] 5 % *HI* (08/06/14 12:55 PM) Basophils [0-2 %] 0 % (08/06/14 12:55 PM) Neutro Absolute 3.47 10*3 [1.90-7.00 10*3] (08/06/14 12:55 PM) Lymph Absolute 3.51 10*3 [0.80-3.30 10*3] *HI* (08/06/14 12:55 PM) [place] Absolute 0.41 10*3 [0.30-1.00 10*3] (08/06/14 12:55 PM) Eos Absolute 0.35 10*3 [0.00-0.50 10*3] (08/06/14 12:55 PM) Baso Absolute 0.03 10*3 [0.00-0.20 10*3] (08/06/14 12:55 PM) Nucleated RBC 0.0 /100 WBC Automated [0 /100 (08/06/14 12:55 PM) WBC] Chemistry Most recent to 1 oldest [Reference Range]: Sodium Lvl [136-144 135 mEq/L mEq/L] *LOW* (08/06/14 12:56 PM) Potassium Lvl 4.0 mEq/L [3.6-5.1 mEq/L] (08/06/14 12:56 PM) Chloride [99-109 104 mEq/L mEq/L] (08/06/14 12:56 PM) CO2 [22-32 mEq/L] 27 mEq/L (08/06/14 12:56 PM) AGAP [3-20] 4 (08/06/14 12:56 PM) BUN [4-20 mg/dL] 6 mg/dL (08/06/14 12:56 PM) Glucose Lvl [70-100 75 mg/dL mg/dL] (08/06/14 12:56 PM) Creatinine Lvl 0.65 mg/dL [0.44-1.03 mg/dL] (08/06/14 12:56 PM) eGFR [>60] >60 1 (08/06/14 12:56 PM) Calcium Lvl 9.1 mg/dL [8.6-10.0 mg/dL] (08/06/14 12:56 PM) Albumin Lvl [3.5-4.8 3.5 gm/dL gm/dL] (08/06/14 12:56 PM) Total Protein 6.1 gm/dL [6.1-7.9 gm/dL] (08/06/14 12:56 PM) Globulin [1.9-4.3 2.6 gm/dL gm/dL] (08/06/14 12:56 PM) ALT [14-54 U/L] 11 U/L *LOW* (08/06/14 12:56 PM) AST [15-41 U/L] 11 U/L *LOW* (08/06/14 12:56 PM) Alk Phos [26-104 61 U/L U/L] (08/06/14 12:56 PM) Bili Total [0.2-1.2 0.4 mg/dL 2 mg/dL] (08/06/14 12:56 PM) Lipase Lvl [8-48 19 U/L U/L] (08/06/14 12:56 PM) 1Result Comment: Multiply eGFR results by 1.21 for race. 2Result Comment: Naproxen, specifically the metabolite O-desmethylnaproxen, may cause spurious elevation in Total Bilirubin levels. Urinalysis Most recent to 1 oldest [Reference Range]: UA Color Lt Yellow (08/06/14 12:55 PM) UA Appear Clear (08/06/14 12:55 PM) UA pH [5.0-8.0] 5.0 (08/06/14 12:55 PM) UA Leuk Est Negative [Negative] (08/06/14 12:55 PM) UA Nitrite Negative [Negative] (08/06/14 12:55 PM) UA Protein Negative [Negative] (08/06/14 12:55 PM) UA Glucose Negative [Negative] (08/06/14 12:55 PM) UA Ketones Negative [Negative] (08/06/14 12:55 PM) UA Urobilinogen Negative [<1.0] (08/06/14 12:55 PM) UA Bili [Negative] Negative (08/06/14 12:55 PM) UA Blood [Negative] Negative (08/06/14 12:55 PM) UA Spec Grav 1.009 [1.003-1.030] (08/06/14 12:55 PM) Type Clean Catch (08/06/14 12:55 PM) Immunizations No data available for this section [...] surgical case 5auto-populated from documented surgical case [id number] Social History Social History Type Response Smoking Status Current every day smoker; Tobacco use per day: Less than Pack Assessment and Plan No data available for this section
--- OUTSIDE RECORDS SUMMARY | 2016-05-25 09:32 | XMS REPORT | Referral Summary ---
Author Author [facility] Organization [facility] Address Unknown Phone Unavailable Care Team Providers Care Physicist Acoustics Name Role Phone Page, B Primary Care Physician [phone] Encounter VC Date(s): 11/11/14 - 11/11/14 [facility] [address] [place] [address] [phone] Discharge Diagnosis: Low back pain Discharge Disposition: [...] 0 Refill(s) Start Date: 10/01/14 Status: Ordered [place] 7.5 mg-325 mg oral tablet 1 tabs, [...]
--- OUTSIDE RECORDS SUMMARY | 2016-05-25 09:33 | XMS REPORT ---
Author Author [place]/[facility], [facility] - Organization Unknown Address Unknown Phone Unavailable Allergies, Adverse Reactions, Alerts * Toradol causes Mild Adverse Reaction. * tramadol causes Mild Adverse Reaction. * Penicillins causes Severe anaphylaxis. * Latex Allergy has not been assessed. * IV Contrast Allergy has not been assessed. * No Known Food Allergies. Problems * Benzodiazepine Overdose* Status:Resolved. * Drug Dependence* Status:Inactive. * Drug Overdose - Suicide* Status:Resolved. * Falls* Status:Inactive. * Fluid Volume Impairment* Status:Resolved. * Hysterectomy* Status:Resolved. * Pain* Status:Active. * Substance Abuse* Status:Inactive. Procedures No relevant procedures performed. Medication Medication reconciliation has not been performed. Results LAB--BEDSIDE TESTING from 09/22/2012 6:56 AMGlucose NPT 99 mg/dL (70-100 mg/dL)
--- OUTSIDE RECORDS SUMMARY | 2016-05-25 09:33 | XMS REPORT | Referral Summary ---
Author Organization Unknown Address Unknown Phone Unavailable Care Team Providers Care Slot Shift Manager Name Role Phone ChazKyung Primary Care Physician [phone] Encounter [facility] [id number] Date(s): 06/15/14 - 06/15/14 [facility] [address] [place] [address] Discharge Diagnosis: Abdominal pain Discharge Disposition: Home or Self Care Attending Physician: Flynn Mittal DO Admitting Physician: Flynn Mittal DO Vital Signs Most recent to 1 oldest [Reference Range]: Temperature Oral 36.9 degC [35.8-37.3 degC] (06/15/14 4:30 PM) Peripheral Pulse 98 bpm Rate [60-100 bpm] (06/15/14 7:24 PM) Heart Rate Monitored 98 bpm [60-100 bpm] (06/15/14 7:48 PM) Respiratory Rate 18 br/min [14-20 br/min] (06/15/14 7:48 PM) Blood Pressure 125/82 mmHg [90-140/60-90 mmHg] (06/15/14 7:48 PM) Most recent to 1 oldest [Reference Range]: SpO2 100 % (06/15/14 7:48 PM) Problem List Condition Effective Dates Status Health Status Informant Asthma(Confirmed) Active patient Epilepsy(Confirmed) Active patient Hernia(Confirmed) Active patient Allergies, Adverse Reactions, Alerts Substance Reaction Severity Status penicillin anaphylaxis Active traMADol triggers siezure activity Active Adverse Reaction Medications Advair Diskus 100 mcg-50 mcg inhalation powder puffs, Inhalation, BID, 0 Refill(s) Start Date: 09/26/13 Status: Ordered Depakote Oral, TID, 0 Refill(s) Start Date: 09/26/13 Status: Ordered Naprosyn 250 mg oral tablet 1 tabs, Oral, BID, # 14 tabs, 0 Refill(s) Start Date: 09/26/13 Stop Date: 10/03/13 Status: Ordered [place] 7.5 mg-325 mg oral tablet 1 tabs, Oral, q6hr, Pain Moderate (4-6), 0 Refill(s), Indication: abdominal pain Start Date: 02/10/14 Status: Ordered ProAir HFA puffs, Inhalation, QID, 0 Refill(s) Start Date: 09/26/13 Status: Ordered Results Hematology Most recent to 1 oldest [Reference Range]: WBC [4.8-10.8 K/uL] 6.5 K/uL (06/15/14 5:53 PM) RBC [4.00-5.20 M/uL] 4.60 M/uL (06/15/14 5:53 PM) Hgb [12.0-16.0 14.4 gm/dL gm/dL] (06/15/14 5:53 PM) Hct [37.0-47.0 %] 41.5 % (06/15/14 5:53 PM) MCV [82.0-99.0 fL] 90.2 fL (06/15/14 5:53 PM) MCH [27.0-32.0 pg] 31.3 pg (06/15/14 5:53 PM) MCHC [32.0-36.0 34.7 gm/dL gm/dL] (06/15/14 5:53 PM) RDW [11.5-14.5 %] 12.6 % (06/15/14 5:53 PM) Platelet [150-400 295 K/uL K/uL] (06/15/14 5:53 PM) MPV [9.4-12.4 fL] 10.2 fL (06/15/14 5:53 PM) Immature 0.2 % Granulocytes (06/15/14 5:53 PM) [0.0-1.0 %] Neutrophils [51-75 44 % %] *LOW* (06/15/14 5:53 PM) Lymphocytes [20-46 48 % %] *HI* (06/15/14 5:53 PM) Monocytes [4-11 %] 6 % (06/15/14 5:53 PM) Eosinophils [0-4 %] 2 % (06/15/14 5:53 PM) Basophils [0-2 %] 0 % (06/15/14 5:53 PM) Neutro Absolute 2.88 THOUS [1.90-7.00 THOUS] (06/15/14 5:53 PM) Lymph Absolute 3.11 THOUS [0.80-3.30 THOUS] (06/15/14 5:53 PM) [place] Absolute 0.38 THOUS [0.30-1.00 THOUS] (06/15/14 5:53 PM) Eos Absolute 0.12 THOUS [0.00-0.50 THOUS] (06/15/14 5:53 PM) Baso Absolute 0.01 THOUS [0.00-0.20 THOUS] (06/15/14 5:53 PM) Nucleated RBC 0.0 /100 WBC Automated [0 /100 (06/15/14:53 PM) WBC] Chemistry Most recent to 1 oldest [Reference Range]: Sodium Lvl [136-144 137 mEq/L mEq/L] (06/15/14 5:53 PM) Potassium Lvl 4.0 mEq/L [3.6-5.1 mEq/L] (06/15/14 5:53 PM) Chloride [99-109 103 mEq/L mEq/L] (06/15/14 5:53 PM) CO2 [22-32 mEq/L] 26 mEq/L (06/15/14:53 PM) AGAP [3-20] 8 (06/15/14 5:53 PM) BUN [4-20 mg/dL] 12 mg/dL (06/15/14 5:53 PM) Glucose Lvl [70-100 92 mg/dL mg/dL] (06/15/14 5:53 PM) Creatinine Lvl 0.66 mg/dL [0.44-1.03 mg/dL] (06/15/14 5:53 PM) eGFR [>60] >60 2 (06/15/14:53 PM) Calcium Lvl 9.8 mg/dL [8.6-10.0 mg/dL] (06/15/14 5:53 PM) Albumin Lvl [3.5-4.8 4.2 gm/dL gm/dL] (06/15/14 5:53 PM) Total Protein 7.0 gm/dL [6.1-7.9 gm/dL] (06/15/14 5:53 PM) Globulin [1.9-4.3 2.8 gm/dL gm/dL] (06/15/14 5:53 PM) ALT [14-54 unit/L] 17 unit/L (06/15/14 5:53 PM) AST [15-41 unit/L] 15 unit/L (06/15/14 5:53 PM) Alk Phos [26-104 75 unit/L unit/L] (06/15/14 5:53 PM) Bili Total [0.2-1.2 0.8 mg/dL 1 mg/dL] (06/15/14 5:53 PM) Lipase Lvl [8-48 22 unit/L unit/L] (06/15/14 5:53 PM) 1Result Comment: Naproxen, specifically the metabolite O-desmethylnaproxen, may cause spurious elevation in Total Bilirubin levels. 2Result Comment: Multiply eGFR results by 1.21 for race. Urinalysis Most recent to 1 oldest [Reference Range]: UA Color Lt Yellow (06/15/14 5:53 PM) UA Appear Clear (06/15/14 5:53 PM) UA pH [5.0-8.0] 6.5 (06/15/14 5:53 PM) UA Leuk Est Negative [Negative] (06/15/14 5:53 PM) UA Nitrite Negative [Negative] (06/15/14 5:53 PM) UA Protein Negative [Negative] (06/15/14 5:53 PM) UA Glucose Negative [Negative] (06/15/14 5:53 PM) UA Ketones Negative [Negative] (06/15/14 5:53 PM) UA Urobilinogen Negative [<1.0] (06/15/14 5:53 PM) UA Bili [Negative] Negative (06/15/14 5:53 PM) UA Blood [Negative] Negative (06/15/14 5:53 PM) UA Spec Grav 1.014 [1.003-1.030] (06/15/14 5:53 PM) Type Clean Catch (06/15/14 5:53 PM) Immunizations No data available for this section Procedures Procedure Date Related Diagnosis Body Site Colonoscopy1 02/10/14 Esophagogastroduodenoscopy - SN2 02/10/14 Examination Under Anesthesia3 02/10/14 Bilateral tubal ligation section Colostomy Exploratory laparotomy hysterectomy4 Repair of rectocele Take-down of colostomy 1auto-populated from documented surgical case 2auto-populated from documented surgical case 3auto-populated from documented surgical case [id number] Social History Social History Type Response Smoking Status Current every day smoker; Tobacco use per day: Less than Pack Assessment and Plan No data available for this section
--- OUTSIDE RECORDS SUMMARY | 2016-05-25 09:33 | XMS REPORT | Referral Summary ---
Author Author [facility] Organization [facility] Address Unknown Phone Unavailable Care Team Providers Care Non Destructive Evaluation Specialist Name Role Phone Page, B Primary Care Physician [phone] Encounter VC Date(s): 07/18/14 - 07/18/14 [facility] [address] [place] [address] Discharge Diagnosis: Abdominal pain Discharge Diagnosis: Diarrhea Final: ABDOMINAL PAIN, GENERALIZED Final: DIARRHEA Discharge Disposition: 01-Home or Self Care Attending Physician: Marcos Love DO Admitting Physician: Marcos Love DO Vital Signs Most recent to 1 oldest [Reference Range]: Temperature Oral 36.7 degC [35.8-37.3 degC] (07/18/14 1:17 PM) Peripheral Pulse 70 bpm Rate [60-100 bpm] (07/18/14 1:17 PM) Respiratory Rate 24 br/min [14-20 br/min] *HI* (07/18/14 1:17 PM) Blood Pressure 95/45 mmHg [90-140/60-90 mmHg] (07/18/14 1:17 PM) SpO2 99 % (07/18/14 1:17 PM) Problem List Condition Effective Dates Status [...] 0 Refill(s) Start Date: 10/01/14 Status: Ordered [place] 7.5 mg-325 mg oral tablet 1 tabs, [...] to 1 oldest [Reference Range]: WBC [4.8-10.8 8.1 10*3/uL 10*3/uL] (07/18/14 3:03 PM) RBC [4.00-5.20 4.52 10*6/uL 10*6/uL] (07/18/14 3:03 PM) Hgb [12.0-16.0 14.3 gm/dL gm/dL] (07/18/14 3:03 PM) Hct [37.0-47.0 %] 40.7 % (07/18/14 3:03 PM) MCV [82.0-99.0 fL] 90.0 fL (07/18/14 3:03 PM) MCH [27.0-32.0 pg] 31.6 pg (07/18/14 3:03 PM) MCHC [32.0-36.0 35.1 gm/dL gm/dL] (07/18/14 3:03 PM) RDW [11.5-14.5 %] 12.5 % (07/18/14 3:03 PM) Platelet [150-400 218 10*3/uL 10*3/uL] (07/18/14 3:03 PM) MPV [9.4-12.4 fL] 10.5 fL (07/18/14 3:03 PM) Immature 0.1 % Granulocytes (07/18/14 3:03 PM) [0.0-1.0 %] Neutrophils [51-75 72 % %] (07/18/14 3:03 PM) Lymphocytes [20-46 24 % %] (07/18/14 3:03 PM) Monocytes [4-11 %] 3 % *LOW* (07/18/14 3:03 PM) Eosinophils [0-4 %] 1 % (07/18/14 3:03 PM) Basophils [0-2 %] 0 % (07/18/14 3:03 PM) Neutro Absolute 5.85 10*3 [1.90-7.00 10*3] (07/18/14 3:03 PM) Lymph Absolute 1.92 10*3 [0.80-3.30 10*3] (07/18/14 3:03 PM) [place] Absolute 0.25 10*3 [0.30-1.00 10*3] *LOW* (07/18/14 3:03 PM) Eos Absolute 0.08 10*3 [0.00-0.50 10*3] (07/18/14 3:03 PM) Baso Absolute 0.00 10*3 [0.00-0.20 10*3] (07/18/14 3:03 PM) Nucleated RBC 0.0 /100 WBC Automated [0 /100 (07/18/14 3:03 PM) WBC] Chemistry Most recent to 1 oldest [Reference Range]: Sodium Lvl [136-144 136 mEq/L mEq/L] (07/18/14 3:03 PM) Potassium Lvl 3.9 mEq/L [3.6-5.1 mEq/L] (07/18/14 3:03 PM) Chloride [99-109 106 mEq/L mEq/L] (07/18/14 3:03 PM) CO2 [22-32 mEq/L] 23 mEq/L (07/18/14 3:03 PM) AGAP [3-20] 7 (07/18/14 3:03 PM) BUN [4-20 mg/dL] 10 mg/dL (07/18/14 3:03 PM) Glucose Lvl [70-100 126 mg/dL mg/dL] *HI* (07/18/14 3:03 PM) Creatinine Lvl 0.72 mg/dL [0.44-1.03 mg/dL] (07/18/14 3:03 PM) eGFR [>60] >60 1 (07/18/14 3:03 PM) Calcium Lvl 9.6 mg/dL [8.6-10.0 mg/dL] (07/18/14 3:03 PM) Albumin Lvl [3.5-4.8 3.9 gm/dL gm/dL] (07/18/14 3:03 PM) Total Protein 6.4 gm/dL [6.1-7.9 gm/dL] (07/18/14 3:03 PM) Globulin [1.9-4.3 2.5 gm/dL gm/dL] (07/18/14 3:03 PM) ALT [14-54 U/L] 11 U/L *LOW* (07/18/14 3:03 PM) AST [15-41 U/L] 14 U/L *LOW* (07/18/14 3:03 PM) Alk Phos [26-104 61 U/L U/L] (07/18/14 3:03 PM) Bili Total [0.2-1.2 0.8 mg/dL 2 mg/dL] (07/18/14 3:03 PM) Lipase Lvl [8-48 15 U/L U/L] (07/18/14 3:03 PM) 1Result Comment: Multiply eGFR results by 1.21 for race. 2Result Comment: Naproxen, specifically the metabolite O-desmethylnaproxen, may cause spurious elevation in Total Bilirubin levels. Urinalysis Most recent to 1 oldest [Reference Range]: UA Color Lt Yellow (07/18/14 3:03 PM) UA Appear Clear (07/18/14 3:03 PM) UA pH [5.0-8.0] 5.0 (07/18/14 3:03 PM) UA Leuk Est Negative [Negative] (07/18/14 3:03 PM) UA Nitrite Negative [Negative] (07/18/14 3:03 PM) UA Protein Negative [Negative] (07/18/14 3:03 PM) UA Glucose Negative [Negative] (07/18/14 3:03 PM) UA Ketones Negative [Negative] (07/18/14 3:03 PM) UA Urobilinogen Negative [<1.0] (07/18/14 3:03 PM) UA Bili [Negative] Negative (07/18/14 3:03 PM) UA Blood [Negative] Negative (07/18/14 3:03 PM) UA Spec Grav 1.015 [1.003-1.030] (07/18/14 3:03 PM) Type Clean Catch (07/18/14 3:03 PM) Immunizations No data available for this [...]
--- OUTSIDE RECORDS SUMMARY | 2016-05-25 09:33 | XMS REPORT | Continuity of care Document ---
Author Author GENERATED, SYSTEM Organization Unknown Address Unknown Phone Unavailable Purpose Hospital Course Allergies, Adverse Reactions, Alerts * Latex Allergy has not been assessed. * IV Contrast Allergy has not been assessed. Problems No relevant problems exist. Procedures No relevant procedures performed. Medication Medication reconciliation has not been performed. Results Chemistry from 07/09/2013 11:00 AMSODIUM 138 MMOL/L (136-145 MMOL/L) POTASSIUM 3.9 MMOL/L (3.5-5.1 MMOL/L) CHLORIDE 102 MMOL/L (98-107 MMOL/L) TCO2 28.5 MMOL/L (21.0-32.0 MMOL/L) ANION GAP 7.5 MMOL/L L (8.0-16.0 MMOL/L) BUN 18 MG/DL (7-18 MG/DL) CREATININE 0.79 MG/DL (0.43-0.83 MG/DL) BUN/CREATININE RATIO 22.8 H (9.1-17.0 ) GLUCOSE 94 MG/DL (65-99 MG/DL) GFR EST NON AFR BULGARIAN >=90 ML/MIN GFRA EST AFR AMER >=90 ML/MIN CALCIUM 9.3 MG/DL (8.5-10.1 MG/DL) BILIRUBIN TOTAL 0.58 MG/DL (0.20-1.00 MG/DL) TOTAL PROTEIN 7.6 GM/DL (6.4-8.2 GM/DL) ALBUMIN 3.9 GM/DL (3.4-5.0 GM/DL) GLOBULIN 3.7 GM/DL H (2.3-3.5 GM/DL) A/G RATIO 1.1 MG/DL L (1.5-2.2 MG/DL) ALK PHOS 62 U/L (46-116 U/L) ALT (SGPT) 20 U/L (12-78 U/L) AST (SGOT) 13 U/L L (15-37 U/L) AMYLASE 32 U/L (25-115 U/L) LIPASE 105 U/L (73-393 U/L) ALCOHOL <0.003 GM/DL ACETAMINOPHEN <2 MCG/ML L (10-30 MCG/ML) SALICYLATE 4.6 MG/DL (2.8-20.0 MG/DL) Chemistry from 07/09/2013 12:30 PMCOCAINE NEGATIVE (NEG <150 ) PCP NEGATIVE (NEG <25 ) OXYCODONE NEGATIVE (NEG <100 ) *PROPOXYPHENE (NORPROPOXYPHENE) (LAB) NEGATIVE (NEG <300 ) CANNABINOIDS NEGATIVE (NEG <50 ) BENZODIAZEINE NEGATIVE (NEG <150 ) AMPHETAMINE NEGATIVE (NEG <500 ) BARBITURATES NEGATIVE (NEG <200 ) METHAMPHETAMINES NEGATIVE (NEG <500 ) METHADONE (UR) NEGATIVE (NEG <200 ) OPIATES POSITIVE A (NEG <100 ) TRICYCLICS NEGATIVE (NEG <300 ) Hematology from 07/09/2013 11:00 AMWBC 7.6 X10e3/UL (3.6-11.2 X10e3/UL) RBC 4.42 X10e6/UL (3.63-4.92 X10e6/UL) HEMOGLOBIN 14.5 G/DL H (11.0-14.3 G/DL) HEMATOCRIT 41.6 % (31.2-41.9 %) MCV 94.1 FL (79.0-98.0 FL) MCH 32.8 PG (27.0-33.0 PG) MCHC 34.8 G/DL (32.0-36.0 G/DL) RDW 13.3 % (12.3-17.0 %) RDWSD 43.3 (37.1-47.8 ) PLATELET 222 X10e3/UL (159-386 X10e3/UL) MPV 8.7 FL (7.4-10.4 FL) AUTOMATED DIFF PERFORMED SEGS 66.3 % LYMPHOCYTES 26.8 % MONOCYTES 5.4 % EOSINOPHILS 1.0 % BASOPHILS 0.5 % ABSOLUTE NEUTROPHILS 5.0 X10e3/UL (1.8-7.8 X10e3/UL) ABSOLUTE LYMPHOCYTES 2.0 X10e3/UL (1.0-3.0 X10e3/UL) ABSOLUTE MONOCYTES 0.4 X10e3/UL (0.3-1.0 X10e3/UL) ABSOLUTE EOSINOPHILS 0.1 X10e3/UL (0.0-0.5 X10e3/UL) ABSOLUTE BASOPHILS 0.0 X10e3/UL (0.0-0.2 X10e3/UL) Urinalysis from 07/09/2013 12:30 PMURINE COLOR YELLOW (STRAW/YELL/DK YELL ) URINE APPEARANCE SL CLOUDY A (CLEAR ) URINE PH 6.5 (5.0-8.0 ) URINE SPECIFIC GRAVITY <=1.005 (<=1.005->=1.030 ) URINE GLUCOSE NEGATIVE MG/DL (NEGATIVE MG/DL) URINE BILIRUBIN NEGATIVE (NEGATIVE ) URINE KETONES NEGATIVE MG/DL (NEGATIVE MG/DL) URINE BLOOD NEGATIVE (NEGATIVE ) URINE PROTEIN NEGATIVE MG/DL (NEGATIVE MG/DL) URINE UROBILINOGEN 0.2 EU/DL (0.2-1.0 EU/DL) URINE NITRITES NEGATIVE (NEGATIVE ) *URINE LEUKOCYTES NEGATIVE (NEGATIVE ) CT Scan from 07/09/2013 11:03 AMCT ABD/PELVIS W/CONTRAST DATE OF EXAM: Jul 09 2013 12:27PM Proc: CT 0232 - CT ABD/PELVIS W/ CONTRAST CPT Code(s): 60305-; ; ; INDICATION / CLINICAL HISTORY: Abdominal pain. TECHNIQUE: The study was performed with 95 mL Isovue 300 IV contrast. FINDINGS: ABDOMEN: Lung bases appear clear. The liver, spleen, pancreas, adrenal glands, and kidneys appear within normal limits. No free fluid or retroperitoneal lymphadenopathy is identified. There are postsurgical changes of a midline incision with apparent broad-based incisional hernia containing fat and non-obstructed small bowel. There are postsurgical changes of a sigmoidectomy. There is moderate constipation. No inflammatory process is identified. PELVIS: The bladder appears within normal limits. The uterus is surgically absent. IMPRESSION: 1. Moderate constipation. 2. Incisional hernia with marked thinning of the anterior abdominal wall overlying the hernia measuring only a few millimeters in thickness. The hernia otherwise appears uncomplicated.
--- OUTSIDE RECORDS SUMMARY | 2016-05-25 09:33 | XMS REPORT | Referral Summary ---
Author Author [facility] Organization [facility] Address Unknown Phone Unavailable Care Team Providers Care Director Surface Transportation Name Role Phone No PCP, Pt States Primary Care Physician [phone] Encounter VC Date(s): 04/15/16 - 04/15/16 [facility] [address] [place] [address] [phone] Discharge Diagnosis: Subtle nondisplaced avulsion fracture of the lateral malleolus with moderate soft tissue swelling, left Discharge Disposition: 01-Home or Self Care Attending Physician: Maynor Renee MD Admitting Physician: Maynor Renee MD Referring Physician: Self Referred, X Vital Signs Most recent to 1 oldest [Reference Range]: Temperature Oral 36.8 degC [35.8-37.3 degC] (04/15/16 3:39 PM) Peripheral Pulse 100 bpm Rate [60-100 bpm] (04/15/16 3:39 PM) Respiratory Rate 18 br/min [14-20 br/min] (04/15/16 3:39 PM) Blood Pressure 111/70 mmHg [90-140/60-90 mmHg] (04/15/16 3:39 PM) SpO2 98 % (04/15/16 3:39 PM) Problem List Condition Effective Dates Status [...] Refill(s) Start Date: 09/26/13 Status: Ordered ibuprofen 400 mg oral tablet 400 mg 1 tabs, Oral, q4hr, as needed for pain, not to exceed 3200 mg/day with food or milk SUP/maynor Renee MD., # 24 tabs, 0 Refill(s) Start Date: 04/15/16 Stop Date: 04/19/16 Status: Ordered ibuprofen 800 mg oral tablet 800 mg 1 tabs, Oral, TID, as needed for pain, # 30 tabs, 0 Refill(s) Start Date: 11/11/14 Stop Date: 11/21/14 Status: Ordered [place] 0.125 mg oral tablet 0.125 mg 1 tabs, Oral, QID, # 120 tabs, 0 Refill(s) Start Date: 10/01/14 Status: Ordered [place] 5 mg-325 mg oral tablet 1 tabs, Oral, q6hr, as needed for pain, not to exceed 8 tablets/day MICHAEL/maynor Renee MD, # 8 tabs, 0 Refill(s) Start Date: 04/15/16 Stop Date: 04/19/16 Status: Ordered [place] 7.5 mg-325 mg oral tablet 1 tabs, [...] - SN4 02/10/14 Examination Under Anesthesia5 02/10/14 Colonoscopy 11/02/09 Bilateral tubal ligation section Colostomy Exploratory laparotomy [...]
--- OUTSIDE RECORDS SUMMARY | 2016-05-25 09:33 | XMS REPORT | Continuity of Care Document ---
Author Author [facility] Organization [facility] Address Unknown Phone Unavailable Care Team Providers Care Production Control Clerk Name Role Phone OTHER Primary Care Physician [phone] Insurance Providers Payer Name Policy Number Subscriber Name Relationship [employer] [id number] [employer]ee 18 Self Problems Medical Problems [...] closed Unknown Active Abdominal pain Unknown Active Medications Medication Dose Route Sig Days/Qty Instructions Order Date Discontinued Date Status Divalproex Sodium 1,000 Mg PO TWICE A DAY 07/19/13 Active Hydrocodone/Acetaminophen 1-2 Tab PO Q6H/0300,0900,1500,2100 PRN sacral fracture 20 Qty 09/16/13 Active Ondansetron 4 Mg PO FOUR TIMES DAILY PRN NAUSEA &/OR VOMITING 10 Qty Active Social History Social History Problem Response Recorded Date/Time Smoking Status Current every day smoker 07/19/2013 7:05pm Chewing Tobacco Status No 09/16/2013 8:11pm Hx Substance Use No 09/16/2013 8:11pm Hx Alcohol Use No 09/16/2013 8:11pm Query Response Start Date Stop Date Smoking Status Current every day smoker Hospital Discharge Instructions No hospital discharge instructions. Plan of Care No plan of care. Functional Status Query Response Date Recorded Physical Hygiene Self September 16, 2013 8:11pm Disabilities None September 16, 2013 8:11pm Devices Used Dentures September 16, 2013 8:11pm Dressing Self September 16, 2013 8:11pm Ambulation Self September 16, 2013 8:11pm Diet Self September 16, 2013 8:11pm Mental Status Alert September 16, 2013 10:05pm Disabilities None September 16, 2013 8:11pm Devices Used Dentures September 16, 2013 8:11pm Physical Hygiene Self September 16, 2013 8:11pm Dressing Self September 16, 2013 8:11pm Ambulation Self September 16, 2013 8:11pm Diet Self September 16, 2013 8:11pm Allergies, Adverse Reactions, Alerts Allergen Type Severity Reaction Status Last Updated Penicillin Allergy Unknown Active 09/16/13 Tramadol Allergy Unknown Active 09/16/13 Immunizations Name Given Type Hx Influenza Vaccination Y FALL 2012 Historical Hx Influenza Vaccination Y FALL 2012 Historical Vital Signs Acute Vital Signs Vital Response Date/Time Temperature (Fahrenheit) 98.2 deg F (96.8 - 99.1) Temperature (Calculated Celsius) 36.35495 degrees C (36.0 - 37.3) Pulse Rate (adult) 74 bpm (60 - 100) Respiratory Rate 16 breaths/min (10 - 20) O2 Sat by Pulse Oximetry 98 % (90 - 100) Blood Pressure 110/58 mm Hg Height 5 ft 5.5 in Weight 120 lb Body Mass Index 19.0 kg/m^2 Results Test Source Date Result Interp. Ref. Range Comments Alanine Aminotransferase (ALT/SGPT) September 16, 2013 8:28pm 22 U/L N 9-52 Albumin September 16, 2013 8:28pm 4.2 G/DL N 3.5-5.0 Albumin/Globulin Ratio September 16, 2013 8:28pm 1.6 RATIO N 1.1-2.2 Alkaline Phosphatase September 16, 2013 8:28pm 66 U/L N 38-126 Amylase Level September 16, 2013 8:28pm 78 U/L N 30-110 Anion Gap September 16, 2013 8:28pm 13 MEQ/L N 5-15 Aspartate Amino Transf (AST/SGOT) September 16, 2013 8:28pm 13 U/L L 14-36 BUN/Creatinine Ratio September 16, 2013 8:28pm 20 RATIO N 6-26 Basophils # (Auto) September 16, 2013 8:28pm 0.0 T/MM3 N 0-0.2 Basophils (%) (Auto) September 16, 2013 8:28pm 0.4 % N 0-2 Blood Urea Nitrogen September 16, 2013 8:28pm 16.0 MG/DL N 7-17 Calcium Level September 16, 2013 8:28pm 9.4 MG/DL N 8.4-10.2 Calculated Osmolality September 16, 2013 8:28pm 275 MOSM/KG N 261-280 Carbon Dioxide Level September 16, 2013 8:28pm 25 MEQ/L N 22-30 Chloride Level September 16, 2013 8:28pm 105 MEQ/L N 98-107 Creatinine September 16, 2013 8:28pm 0.8 MG/DL N 0.7-1.2 Eosinophils # (Auto) September 16, 2013 8:28pm 0.1 T/MM3 N 0-0.5 Eosinophils (%) (Auto) September 16, 2013 8:28pm 0.8 % N 0-4 Globulin September 16, 2013 8:28pm 2.7 G/DL N 2.4-3.6 Glucose Level September 16, 2013 8:28pm 88 MG/DL N 65-110 Group A Streptococcus Screen February 21, 2013 2:15pm Negative - Strep culture confirmation to follow Hematocrit September 16, 2013 8:28pm 41.4 % N 36-46 Hemoglobin September 16, 2013 8:28pm 14.2 GM/DL N 12-16 Influenza Type A Antigen [...] clinical presentation warrants confirmatory testing. Lipase September 16, 2013 8:28pm 149 U/L N 23-300 Lymphocytes # (Auto) September 16, 2013 8:28pm 3.3 T/MM3 N 1-4.8 Lymphocytes (%) (Auto) September 16, 2013 8:28pm 41.9 % N 23-45 Mean Corpuscular Hemoglobin September 16, 2013 8:28pm 31.8 UUG N 26-34 Mean Corpuscular Hemoglobin Concent September 16, 2013 8:28pm 34.3 GM/DL N 31 -37 Mean Corpuscular Volume September 16, 2013 8:28pm 92.8 UM3 N 80-100 Mean Platelet Volume September 16, 2013 8:28pm 10.3 UM3 N 9.4-12.4 Monocytes # (Auto) September 16, 2013 8:28pm 0.6 T/MM3 N 0-0.8 Monocytes (%) (Auto) September 16, 2013 8:28pm 7.6 % N 0-9.0 Neutrophils # (Auto) September 16, 2013 8:28pm 3.9 T/MM3 N 1.8-7.7 Neutrophils (%) (Auto) September 16, 2013 8:28pm 49.2 % N 33-66 Platelet Count September 16, 2013 8:28pm 267 T/MM3 N 130-400 Potassium Level September 16, 2013 8:28pm 4.2 MEQ/L N 3.6-5 RDW Standard Deviation September 16, 2013 8:28pm 38.5 FL N 36.9-50.2 Red Blood Count September 16, 2013 8:28pm 4.46 M/MM3 N 4.00-5.20 Sodium Level September 16, 2013 8:28pm 143 MEQ/L N 134-144 Total Bilirubin September 16, 2013 8:28pm 0.40 MG/DL N 0.20-1.30 Total Protein September 16, 2013 8:28pm 6.9 G/DL N 6.3-8.2 Urine Bacteria September 16, 2013 9:40pm Trace H - Has specimen been collected/obtained? Y Urine Bilirubin September 16, 2013 9:40pm Negative - Has specimen been collected/obtained? Y Urine Blood September 16, 2013 9:40pm Negative - Has specimen been collected/obtained? Y Urine Collection Type September 16, 2013 9:40pm Voided-not cc-midstr - Has specimen been collected/obtained? Y Urine Color September 16, 2013 9:40pm Yellow - Has specimen been collected /obtained? Y Urine Glucose (UA) September 16, 2013 9:40pm Negative - Has specimen been collected/obtained? Y Urine Ketones September 16, 2013 9:40pm Negative - Has specimen been collected/obtained? Y Urine Leukocyte Esterase September 16, 2013 9:40pm Negative - Has specimen been collected/obtained? Y Urine Mucus September 16, 2013 9:40pm Present - Has specimen been collected/obtained? Y Urine Nitrite September 16, 2013 9:40pm Negative - Has specimen been collected/obtained? Y Urine Protein September 16, 2013 9:40pm 1+ H - Has specimen been collected/ obtained? Y Urine RBC September 16, 2013 9:40pm 0-1 /HPF - Has specimen been collected /obtained? Y Urine Specific [place] September 16, 2013 9:40pm >=1.030 H - Has specimen been collected/obtained? Y Urine Squamous Epithelial Cells September 16, 2013 9:40pm 0-5 - Has specimen been collected/obtained? Y Urine Turbidity September 16, 2013 9:40pm Sl cloudy - Has specimen been collected/obtained? Y Urine Urobilinogen September 16, 2013 9:40pm 0.2 EU/DL - Has specimen been collected/obtained? Y Urine WBC September 16, 2013 9:40pm 0-1 /HPF - Has specimen been collected /obtained? Y Urine pH September 16, 2013 9:40pm 6.0 - Has specimen been collected/ obtained? Y Valproic Acid (Depakene) Level February 21, 2013 2:00pm < 10.0 UG/ML L 50 -120 White Blood Count September 16, 2013 8:28pm 7.9 T/MM3 N 4.5-11.0 Chemistry Specimen Hemolysis September 16, 2013 8:28pm < 15 0-25 0-25: No Hemolysis.26-70: Slight [...] decrease Phenytoin. Recommend specimen recollection. Urinalysis Comment July 19, 2013 8:25pm Microscopic not ind. - Has specimen been collected/obtained? Y Turbidity September 16, 2013 8:28pm < 20 0-20 Glomerular Filtration Rate Calc September 16, 2013 8:28pm 82 - Immature Granulocyte # (Auto) September 16, 2013 8:28pm 0.01 T/MM3 N 0.00- 0.03 Immature Granulocyte % (Auto) September 16, 2013 8:28pm 0.1 % N 0.0-0.5 Icterus Index September 16, 2013 8:28pm < 2 0-7 Group A Streptococcus Culture Throat February 21, 2013 2:28pm Name: INDIGO GEE Unit #: [id number] : 1980 Sex: F Loc / Svc: ED DOS: 07/19/13 Signed Report #: [id number] DIAGNOSTIC IMAGING REPORT TYPE OF EXAM: CT ABD/PELVIS W/CONTRAST ONLY Dictated By: PORTER CARRANZA MD INDICATION: ITS.REASON: RIGHT SIDED ABD PAIN, MULTIPLE ABD SURGERIES CT ABD/PELVIS W/CONTRAST ONLY: Comparison: June 23, 2013 Technique: Axial CT images were performed through the abdomen and pelvis after the administration of intravenous contrast. Contrast: Omnipaque 300 67 mL Findings: The lung bases are clear. Liver is normal. Gallbladder is normal. The spleen, pancreas and adrenal glands are within normal limits. Kidneys appear normal cysts. Ventral abdominal soft tissue defect. Surgical suture in the sigmoid region. No evidence of acute bowel obstruction. No free air. Uterus is surgically absent. Bladder appears normal. Left perirectal fluid collection is stable without significant rim enhancement. Impression: Stable exam with a small left perirectal fluid collection. This does not appear to represent a true abscess. No acute disease process seen in the abdomen or pelvis. There is a preliminary report by [facility]. . Procedures Procedure Status Date Provider(s) THER/PROPH/DIAG INJ IV PUSH completed 06/23/13 TX/PRO/DX INJ NEW DRUG ADDON completed 06/23/13 TX/PRO/DX INJ SAME DRUG PERSONNEL SECURITY ASSISTANT completed 06/23/13 HYDRATE IV INFUSION ADD-ON completed 06/23/13 THER/PROPH/DIAG INJ IV PUSH completed 07/19/13 TX/PRO/DX INJ NEW DRUG ADDON completed 07/19/13 TX/PRO/DX INJ SAME DRUG PERSONNEL SECURITY ASSISTANT completed 07/19/13 Encounters Encounter Location Date/Time Departed Emergency Room [facility] 09/16/13 6:52pm Departed Emergency Room [facility] 07/19/13 5:11pm Departed Emergency Room [facility] 06/23/13 7:31pm Recent Diagnosis
--- OUTSIDE RECORDS SUMMARY | 2016-05-25 09:33 | XMS REPORT | Referral Summary ---
Author Author [facility] Organization [facility] Address Unknown Phone Unavailable Care Team Providers Care Endocrinologist Name Role Phone Page, B Primary Care Physician [phone] Encounter VC Date(s): 10/01/14 - 10/01/14 [facility] [address] [place] [address] [phone] Discharge Diagnosis: Chronic abdominal pain Final: ABDOMINAL PAIN, GENERALIZED Final: Other chronic pain Final: VOMITING ALONE Final: DYSURIA Discharge Diagnosis: Vomiting Discharge Diagnosis: Chronic abdominal pain Discharge Disposition: 01-Home or Self Care Attending Physician: Brea Reyes DO Admitting Physician: Brea Reyes DO Vital Signs Most recent to 1 oldest [Reference Range]: Temperature Oral 36.6 degC [35.8-37.3 degC] (10/01/14 10:24 AM) Peripheral Pulse 64 bpm Rate [60-100 bpm] (10/01/14 2:36 PM) Respiratory Rate 18 br/min [14-20 br/min] (10/01/14 2:36 PM) Blood Pressure 101/57 mmHg [90-140/60-90 mmHg] (10/01/14 2:36 PM) SpO2 100 % (10/01/14 2:36 PM) Problem List Condition Effective Dates Status [...] 0 Refill(s) Start Date: 10/01/14 Status: Ordered [place] 7.5 mg-325 mg oral tablet 1 tabs, [...] to 1 oldest [Reference Range]: WBC [4.8-10.8 7.6 10*3/uL 10*3/uL] (10/01/14 10:26 AM) RBC [4.00-5.20 4.31 10*6/uL 10*6/uL] (10/01/14 10:26 AM) Hgb [12.0-16.0 13.2 gm/dL gm/dL] (10/01/14 10:26 AM) Hct [37.0-47.0 %] 38.7 % (10/01/14 10:26 AM) MCV [82.0-99.0 fL] 89.8 fL (10/01/14 10:26 AM) MCH [27.0-32.0 pg] 30.6 pg (10/01/14 10:26 AM) MCHC [32.0-36.0 34.1 gm/dL gm/dL] (10/01/14 10:26 AM) RDW [11.5-14.5 %] 12.3 % (10/01/14 10:26 AM) Platelet [150-400 239 10*3/uL 10*3/uL] (10/01/14 10:26 AM) MPV [9.4-12.4 fL] 10.3 fL (10/01/14 10: AM) Immature 0.1 % Granulocytes (10/01/14: AM) [0.0-1.0 %] Neutrophils [51-75 63 % %] (10/01/14: AM) Lymphocytes [20-46 31 % %] (10/01/14: AM) Monocytes [4-11 %] 4 % (10/01/14: AM) Eosinophils [0-4 %] 2 % (10/01/14: AM) Basophils [0-2 %] 0 % (10/01/14: AM) Neutro Absolute 4.76 10*3 [1.90-7.00 10*3] (10/01/14 10:26 AM) Lymph Absolute 2.31 10*3 [0.80-3.30 10*3] (10/01/14 10:26 AM) [place] Absolute 0.30 10*3 [0.30-1.00 10*3] (10/01/14 10:26 AM) Eos Absolute 0.16 10*3 [0.00-0.50 10*3] (10/01/14 10:26 AM) Baso Absolute 0.01 10*3 [0.00-0.20 10*3] (10/01/14 10:26 AM) Nucleated RBC 0.0 /100 WBC Automated [0 /100 (10/01/14 10: AM) WBC] Chemistry Most recent to 1 oldest [Reference Range]: Sodium Lvl [136-144 137 mEq/L mEq/L] (10/01/14 10:26 AM) Potassium Lvl 4.0 mEq/L [3.6-5.1 mEq/L] (10/01/14 10:26 AM) Chloride [99-109 105 mEq/L mEq/L] (10/01/14 10:26 AM) CO2 [22-32 mEq/L] 26 mEq/L (10/01/14 10:26 AM) AGAP [3-20] 6 (10/01/14 10:26 AM) BUN [4-20 mg/dL] 11 mg/dL (10/01/14 10:26 AM) Glucose Lvl [70-100 89 mg/dL mg/dL] (10/01/14 10:26 AM) Creatinine Lvl 0.75 mg/dL [0.44-1.03 mg/dL] (10/01/14 10:26 AM) eGFR [>60] >60 1 (10/01/14 10: AM) Calcium Lvl 9.2 mg/dL [8.6-10.0 mg/dL] (10/01/14 10: AM) Albumin Lvl [3.5-4.8 3.8 gm/dL gm/dL] (10/01/14 10: AM) Total Protein 6.4 gm/dL [6.1-7.9 gm/dL] (10/01/14 10: AM) Globulin [1.9-4.3 2.6 gm/dL gm/dL] (10/01/14 10:26 AM) ALT [14-54 U/L] 13 U/L *LOW* (10/01/14: AM) AST [15-41 U/L] 16 U/L (10/01/14 10:26 AM) Alk Phos [26-104 56 U/L U/L] (10/01/14 10:26 AM) Bili Total [0.2-1.2 0.6 mg/dL 2 mg/dL] (10/01/14 10:26 AM) Lipase Lvl [8-48 29 U/L U/L] (10/01/14 10:26 AM) 1Result Comment: Multiply eGFR results by 1.21 for race. 2Result Comment: Naproxen, specifically the metabolite O-desmethylnaproxen, may cause spurious elevation in Total Bilirubin levels. Urinalysis Most recent to 1 oldest [Reference Range]: UA Color Lt Yellow (10/01/14 11:16 AM) UA Appear Sl Cloudy (10/01/14 11:16 AM) UA pH [5.0-8.0] 7.0 (10/01/14 11:16 AM) UA Leuk Est Negative [Negative] (10/01/14 11:16 AM) UA Nitrite Negative [Negative] (10/01/14 11:16 AM) UA Protein Negative [Negative] (10/01/14 11:16 AM) UA Glucose Negative [Negative] (10/01/14 11:16 AM) UA Ketones Negative [Negative] (10/01/14 11:16 AM) UA Urobilinogen Negative [<1.0] (10/01/14 11:16 AM) UA Bili [Negative] Negative (10/01/14 11:16 AM) UA Blood [Negative] Negative (10/01/14 11:16 AM) UA Spec Grav 1.009 [1.003-1.030] (10/01/14 11:16 AM) Type Clean Catch (10/01/14 11:16 AM) Immunizations No data available for this [...]
--- OUTSIDE RECORDS SUMMARY | 2016-05-25 09:33 | XMS REPORT | Referral Summary ---
Author Author [facility] Organization [facility] Address Unknown Phone Unavailable Care Team Providers Care Grounds Caretaker Name Role Phone Page, B Primary Care Physician [phone] Encounter VC Date(s): 09/10/14 - 09/10/14 [facility] [address] [place] [address] Discharge Diagnosis: Acute anxiety Discharge Diagnosis: Delusions Final: ANXIETY STATE, UNSPECIFIED Final: Delusional disorder Discharge Disposition: 01-Home or Self Care Attending Physician: Harvinder Renee MD Admitting Physician: Harvinder Renee MD Vital Signs Most recent to 1 oldest [Reference Range]: Temperature Oral 36.3 degC [35.8-37.3 degC] (09/10/14 10:47 AM) Peripheral Pulse 93 bpm Rate [60-100 bpm] (09/10/14 12:40 PM) Respiratory Rate 18 br/min [14-20 br/min] (09/10/14 12:40 PM) Blood Pressure 94/5 mmHg [90-140/60-90 mmHg] (09/10/14 12:40 PM) SpO2 98 % (09/10/14 12:40 PM) Problem List Condition Effective Dates Status [...] 0 Refill(s) Start Date: 10/01/14 Status: Ordered [place] 7.5 mg-325 mg oral tablet 1 tabs, [...]
--- OUTSIDE RECORDS SUMMARY | 2016-05-25 09:34 | XMS REPORT | Referral Summary ---
Author Author [facility] Organization [facility] Address Unknown Phone Unavailable Care Team Providers Care Rail Maintenance Worker Name Role Phone Page, B Primary Care Physician [phone] Encounter VC Date(s): 06/21/14 - 06/21/14 [facility] [address] [place] [address] Discharge Diagnosis: Abdominal pain Final: ABDOMINAL PAIN, RIGHT LOWER QUADRANT Discharge Disposition: 01-Home or Self Care Attending Physician: Henrry Grajeda JR, MD Admitting Physician: Henrry Grajeda JR, MD Vital Signs Most recent to 1 oldest [Reference Range]: Temperature Oral 36.4 degC [35.8-37.3 degC] (06/21/14 1:01 PM) Peripheral Pulse 78 bpm Rate [60-100 bpm] (06/21/14 6:31 PM) Respiratory Rate 22 br/min [14-20 br/min] *HI* (06/21/14 6:31 PM) Blood Pressure 103/67 mmHg [90-140/60-90 mmHg] (06/21/14 6:31 PM) SpO2 99 % (06/21/14 6:31 PM) Problem List Condition Effective Dates Status [...] 0 Refill(s) Start Date: 10/01/14 Status: Ordered [place] 7.5 mg-325 mg oral tablet 1 tabs, [...] to 1 oldest [Reference Range]: WBC [4.8-10.8 6.7 10*3/uL 10*3/uL] (06/21/14 5:06 PM) RBC [4.00-5.20 4.12 10*6/uL 10*6/uL] (06/21/14 5:06 PM) Hgb [12.0-16.0 12.6 gm/dL gm/dL] (06/21/14 5:06 PM) Hct [37.0-47.0 %] 37.3 % (06/21/14 5:06 PM) MCV [82.0-99.0 fL] 90.5 fL (06/21/14 5:06 PM) MCH [27.0-32.0 pg] 30.6 pg (06/21/14 5:06 PM) MCHC [32.0-36.0 33.8 gm/dL gm/dL] (06/21/14 5:06 PM) RDW [11.5-14.5 %] 12.5 % (06/21/14 5:06 PM) Platelet [150-400 219 10*3/uL 10*3/uL] (06/21/14 PM) MPV [9.4-12.4 fL] 10.3 fL (06/21/14: PM) Immature 0.0 % Granulocytes (06/21/14) [0.0-1.0 %] Neutrophils [51-75 34 % %] *LOW* (06/21/14) Lymphocytes [20-46 55 % %] *HI* (06/21/14) Monocytes [4-11 %] 5 % (06/21/14) Eosinophils [0-4 %] 6 % *HI* (06/21/14) Basophils [0-2 %] 0 % (06/21/14:) Neutro Absolute 2.25 THOUS [1.90-7.00 THOUS] (06/21/14: PM) Lymph Absolute 3.70 THOUS [0.80-3.30 THOUS] *HI* (06/21/14) [place] Absolute 0.34 THOUS [0.30-1.00 THOUS] (06/21/14: PM) Eos Absolute 0.38 THOUS [0.00-0.50 THOUS] (06/21/14: PM) Baso Absolute 0.02 THOUS [0.00-0.20 THOUS] (06/21/14: PM) Nucleated RBC 0.0 /100 WBC Automated [0 /100 (06/21/14: PM) WBC] Chemistry Most recent to 1 oldest [Reference Range]: Sodium Lvl [136-144 138 mEq/L mEq/L] (06/21/14 PM) Potassium Lvl 4.1 mEq/L [3.6-5.1 mEq/L] (06/21/14 PM) Chloride [99-109 107 mEq/L mEq/L] (06/21/14: PM) CO2 [22-32 mEq/L] 26 mEq/L (06/21/14 PM) AGAP [3-20] 5 (5/4/15 5:06 PM) BUN [4-20 mg/dL] 22 mg/dL *HI* (06/21/14 5:06 PM) Glucose Lvl [70-100 83 mg/dL mg/dL] (06/21/14 5:06 PM) Creatinine Lvl 0.69 mg/dL [0.44-1.03 mg/dL] (06/21/14 5:06 PM) eGFR [>60] >60 1 (06/21/14 5:06 PM) Calcium Lvl 9.0 mg/dL [8.6-10.0 mg/dL] (06/21/14 5:06 PM) Albumin Lvl [3.5-4.8 3.5 gm/dL gm/dL] (06/21/14 5:06 PM) Total Protein 5.8 gm/dL [6.1-7.9 gm/dL] *LOW* (06/21/14: PM) Globulin [1.9-4.3 2.3 gm/dL gm/dL] (06/21/14 5:06 PM) ALT [14-54 U/L] 17 U/L (06/21/14 5:06 PM) AST [15-41 U/L] 17 U/L (06/21/14 5:06 PM) Alk Phos [26-104 66 U/L U/L] (06/21/14 5:06 PM) Bili Total [0.2-1.2 0.4 mg/dL 2 mg/dL] (06/21/14 5:06 PM) Lipase Lvl [8-48 34 U/L U/L] (06/21/14 5:06 PM) 1Result Comment: Multiply eGFR results by 1.21 for race. 2Result Comment: Naproxen, specifically the metabolite O-desmethylnaproxen, may cause spurious elevation in Total Bilirubin levels. Urinalysis Most recent to 1 oldest [Reference Range]: UA Color Lt Yellow (06/21/14 5:06 PM) UA Appear Clear (06/21/14 5:06 PM) UA pH [5.0-8.0] 5.0 (06/21/14 5:06 PM) UA Leuk Est Negative [Negative] (06/21/14 5:06 PM) UA Nitrite Negative [Negative] (06/21/14 5:06 PM) UA Protein Negative [Negative] (06/21/14 5:06 PM) UA Glucose Negative [Negative] (06/21/14 5:06 PM) UA Ketones Negative [Negative] (06/21/14 5:06 PM) UA Urobilinogen Negative [<1.0] (06/21/14 5:06 PM) UA Bili [Negative] Negative (06/21/14 5:06 PM) UA Blood [Negative] Negative (06/21/14 5:06 PM) UA Spec Grav 1.015 [1.003-1.030] (06/21/14 5:06 PM) Type Clean Catch (06/21/14 5:06 PM) Immunizations No data available for this [...]
--- OUTSIDE RECORDS SUMMARY | 2016-05-25 09:34 | XMS REPORT | Continuity of Care Document ---
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 GRANULOCYTE % 24 % 50-75 LYMPHOCYTE # 3.6 k/cumm 1.0-4.0 LYMPHOCYTE % 57 % 20-30 MEAN CELL HGB 30.8 pg 27.0-33.0 MEAN CELL HGB CONCENTRATION 33.2 g/dL 32.0-37.0 MEAN CELL VOLUME 92.7 fl 80.0-100.0 MONOCYTE # 0.8 k/cumm 0.1-1.0 MONOCYTE % 12 % 4-6 RED BLOOD CELL 3.99 m/cumm 4.00-6.00 RED CELL DISTRIBUTION WIDTH 12.5 % 11.0- 15.6 WHITE BLOOD CELL 6.4 k/cumm 5.0-10.0 HEMOGLOBIN 12.3 gm/dL 12.0-16.0 HEMATOCRIT 37.0 % 37.0-47.0 PLATELET COUNT 250 k/cumm 150-400 HEPATIC FUNCTION PANEL - 04/08/14 15:42 BILI UNCONJUGATED 0.4 mg/dL 0.0-0.7 AST/SGOT 19 Units/L 10-37 ALT/SGPT 32 Units/L < 66 TOTAL PROTEIN 6.5 gm/dL 6.4-8.2 ALBUMIN 3.2 gm/dL 3.4-5.0 BILI TOTAL 0.5 mg/dL 0.0-1.0 ALKALINE PHOSPHATASE TOTAL 72 IU/L 45- 117 BILI CONJUGATED 0.1 mg/dL 0.0-0.3 LIPASE - 04/08/14 15:42 LIPASE 183 Units/L 73-393 CHEM/HEM PROFILE-BEDSIDE - 04/08/14 16:06 POTASSIUM 3.8 mmol/L 3.5-5.3 METHOD Bedside ANION GAP 19 mmol/L 10-20 METHOD Bedside GLUCOSE 87 mg/dL 70-99 BLOOD UREA NITROGEN 10 mg/dL 7-20 CREATININE 0.9 mg/dL 0.6-1.0 HEMOGLOBIN 11.9 gm/dL 12.0-16.0 HEMATOCRIT 35.0 % 37.0-47.0 SODIUM 142 mmol/L 135-148 CHLORIDE 104 mmol/L 98-110 CARBON DIOXIDE 23 mmol/L 21-32 CALCIUM IONIZED 4.9 mg/dL 4.5-5.3 CBC W/DIFF - 08/27/14 15:00 EOSINOPHIL # 0.3 k/cumm 0.1-0.5 EOSINOPHIL % 4 % 2-4 GRANULOCYTE # 4.1 k/cumm 2.0-9.0 GRANULOCYTE % 53 % 50-75 LYMPHOCYTE # 2.8 k/cumm 1.0-4.0 LYMPHOCYTE % 37 % 20-30 MEAN CELL HGB 30.7 pg 27.0-33.0 MEAN CELL HGB CONCENTRATION 33.1 g/dL 32.0-37.0 MEAN CELL VOLUME 92.7 fl 80.0-100.0 MONOCYTE # 0.4 k/cumm 0.1-1.0 MONOCYTE % 6 % 4-6 RED BLOOD CELL 4.37 m/cumm 4.00-6.00 RED CELL DISTRIBUTION WIDTH 12.5 % 11.0- 15.6 WHITE BLOOD CELL 7.7 k/cumm 5.0-10.0 HEMOGLOBIN 13.4 gm/dL 12.0-16.0 HEMATOCRIT 40.5 % 37.0-47.0 PLATELET COUNT 196 k/cumm 150-400 HEPATIC FUNCTION PANEL - 08/27/14 15:00 BILI UNCONJUGATED 0.2 mg/dL 0.0-0.7 AST/SGOT 16 Units/L 10-37 ALT/SGPT 15 Units/L < 66 TOTAL PROTEIN 6.7 gm/dL 6.4-8.2 ALBUMIN 3.6 gm/dL 3.4-5.0 BILI TOTAL 0.3 mg/dL 0.0-1.0 ALKALINE PHOSPHATASE TOTAL 83 IU/L 45- 117 BILI CONJUGATED 0.1 mg/dL 0.0-0.3 LIPASE - 08/27/14 15:00 LIPASE 104 Units/L 73-393 CHEM/HEM PROFILE-BEDSIDE - 08/27/14 15:02 POTASSIUM 4.5 mmol/L 3.5-5.3 METHOD Bedside ANION GAP 19 mmol/L 10-20 METHOD Bedside GLUCOSE 87 mg/dL 70-99 BLOOD UREA NITROGEN 4 mg/dL 7-20 CREATININE 0.8 mg/dL 0.6-1.0 HEMOGLOBIN 12.9 gm/dL 12.0-16.0 HEMATOCRIT 38.0 % 37.0-47.0 SODIUM 140 mmol/L 135-148 CHLORIDE 104 mmol/L 98-110 CARBON DIOXIDE 24 mmol/L 21-32 CALCIUM IONIZED 4.7 mg/dL 4.5-5.3 URINALYSIS, ROUTINE - 08/27/14 15:05 UA LEUKOCYTE ESTERASE DIPSTICK NEGATIVE NEGATIVE UA NITRITE DIPSTICK NEGATIVE NEGATIVE UA PROTEIN DIPSTICK NEGATIVE NEGATIVE UA GLUCOSE DIPSTICK NEGATIVE NEGATIVE UA KETONE DIPSTICK NEGATIVE NEGATIVE UA UROBILINOGEN DIPSTICK NORMAL NORMAL UA BILIRUBIN DIPSTICK NEGATIVE NEGATIVE UA BLOOD DIPSTICK NEGATIVE NEGATIVE UA SPECIFIC GRAVITY 1.015 1.015-1.025 UR PH 7.0 5.0-7.0 URINALYSIS, ROUTINE - 09/30/14 14:51 UA LEUKOCYTE ESTERASE DIPSTICK NEGATIVE NEGATIVE UA NITRITE DIPSTICK NEGATIVE NEGATIVE UA PROTEIN DIPSTICK NEGATIVE NEGATIVE UA GLUCOSE DIPSTICK NEGATIVE NEGATIVE UA KETONE DIPSTICK NEGATIVE NEGATIVE UA UROBILINOGEN DIPSTICK NORMAL NORMAL UA BILIRUBIN DIPSTICK NEGATIVE NEGATIVE UA BLOOD DIPSTICK NEGATIVE NEGATIVE UA SPECIFIC GRAVITY 1.020 1.015-1.025 UR PH 7.5 5.0-7.0 Microbiology UR TEST - 09/30/14 14:53 UR TEST INDETERMINATE NEGATIVE Microbiology URINALYSIS WITH MICROSCOPIC - 11/30/14 13:20 UA LEUKOCYTE ESTERASE DIPSTICK NEGATIVE NEGATIVE UA NITRITE DIPSTICK NEGATIVE NEGATIVE UA PROTEIN DIPSTICK NEGATIVE NEGATIVE UA GLUCOSE DIPSTICK NEGATIVE NEGATIVE UA KETONE DIPSTICK NEGATIVE NEGATIVE UA UROBILINOGEN DIPSTICK NORMAL NORMAL UA BILIRUBIN DIPSTICK NEGATIVE NEGATIVE UA BLOOD DIPSTICK NEGATIVE NEGATIVE UA EPITHELIAL CELLS 2+ epi/hpf 0 - 1+ UA MUCUS 2+ NEG TO 1+ UA RBC 0-3 rbc/hpf 0 - 3 UA VOLUME FOR EXAM 12.0 mL (12mL STD) UA WBC 0-1 wbc/hpf 0 - 5 UA SPECIFIC GRAVITY 1.025 1.015-1.025 UR PH 6.5 5.0-7.0 Microbiology METABOLIC PANEL, COMPREHN - 04/03/16 15:10 POTASSIUM 4.0 mmol/L 3.5-5.3 EST GFR (MDRD) > 60 mL/min > 59 ANION GAP 8 mmol/L 5-15 GLUCOSE 90 mg/dL 70-99 CALCIUM 8.8 mg/dL 8.5-10.1 BLOOD UREA NITROGEN 12 mg/dL 7-20 CREATININE 0.8 mg/dL 0.6-1.0 SODIUM 143 mmol/L 135-148 CHLORIDE 109 mmol/L 98-110 AST/SGOT 11 Units/L 10-37 ALT/SGPT 15 Units/L < 66 CARBON DIOXIDE 26 mmol/L 21-32 TOTAL PROTEIN 6.5 gm/dL 6.4-8.2 ALBUMIN 3.6 gm/dL 3.4-5.0 BILI TOTAL 0.5 mg/dL 0.0-1.0 ALKALINE PHOSPHATASE TOTAL 65 IU/L 45- 117 URINALYSIS, ROUTINE - 04/03/16 15:13 UA LEUKOCYTE ESTERASE DIPSTICK NEGATIVE NEGATIVE UA NITRITE DIPSTICK NEGATIVE NEGATIVE UA PROTEIN DIPSTICK NEGATIVE NEGATIVE UA GLUCOSE DIPSTICK NEGATIVE NEGATIVE UA KETONE DIPSTICK TRACE NEGATIVE UA UROBILINOGEN DIPSTICK NORMAL NORMAL UA BILIRUBIN DIPSTICK NEGATIVE NEGATIVE UA BLOOD DIPSTICK NEGATIVE NEGATIVE UA SPECIFIC GRAVITY 1.030 1.015-1.025 UR PH 7.0 5.0-7.0 Encounters ACCT No. Visit Date/Time Discharge Status Pt. Type Provider Facility Loc./Unit Complaint [id number] 05/07/2013 14:05:00 2013 16:29:00 DIS Emergency Patrick HEATON, Carl Bernabe [facility] on [facility] [id number] 04/24/2013 13:15:00 2013 13:45:00 DIS Emergency Sonya HEATON, [facility] [id number] 04/11/2013 12:38:00 2013 12:50:00 DIS Emergency Sonya HEATON [facility] on [facility] [id number] 02/17/2013 12:08:00 2012 13:30:00 DIS Emergency Sonya HEATON, [facility] [id number] 02/06/2013 20:39:00 2012 00:04:00 DIS Emergency Selvin Tom MD [facility] [id number] 01/28/2013 23:04:00 2012 23:51:00 DIS Emergency Augustine BARNHART MD, [facility] [id number] 01/28/2013 16:01:00 2012 18:50:00 DIS Emergency Paulino HEATON [facility] [id number] 11/08/2012 10:31:00 2012 12:54:00 DIS Emergency Paulino HEATON [facility] [id number] 09/22/2012 06:42:00 2012 09:30:00 DIS Inpatient Jose Alejandro Cardoza MD [place] [id number] 09/20/2012 13:30:00 2012 16:06:00 DIS Emergency Elsa Adair MD [facility] [id number] 09/07/2012 16:29:00 2012 16:58:00 DIS Emergency Sonya HEATON [facility] [id number] 09/04/2012 10:43:00 2012 12:40:00 DIS Emergency Cuauhtemoc Alvarez DO [facility] [id number] 08/01/2012 15:14:00 2012 20:15:00 DIS Outpatient Henrry Malone MD [address] [id number] 08/01/2012 04:29:00 2012 09:05:00 DIS Emergency Selvin Tom MD [facility] [id number] 06/22/2012 11:00:00 2012 14:59:00 DIS Emergency Chente Isbell MD [facility] on [facility] [id number] 06/14/2012 17:56:00 2012 00:19:00 DIS Emergency Cuauhtemoc Alvarez DO [facility] [id number] 06/11/2012 14:30:00 2012 17:47:00 DIS Emergency Caesar Florence MD [facility] [id number] 06/09/2012 01:40:00 2012 04:18:00 DIS Emergency Selvin Tom MD [facility] [id number] 06/08/2012 07:36:00 2012 10:03:00 DIS Emergency Elsa Adair MD [facility] [id number] 06/05/2012 05:25:00 2012 11:39:00 DIS Outpatient Jeanne HEATON, Ayanna G [facility]7W [id number] 06/02/2012 13:46:00 2012 23:59:59 CLS Outpatient Jeanne HEATON, Ayanna Jernigan [facility] on [facility] [id number] 05/20/2012 14:00:00 2012 23:59:59 CLS Outpatient Henrry Malone MD [facility] [id number] 05/15/2012 11:40:00 2012 13:55:00 DIS Emergency Han Bob MD [facility] [id number] 05/11/2012 13:16:00 2012 14:36:00 DIS Emergency Arias Hassan MD [facility] [id number] 05/10/2012 14:16:00 2012 15:45:00 DIS Emergency Arias Hassan MD [facility] [id number] 05/06/2012 13:45:00 2012 15:27:00 DIS Emergency Flynn Mittal DO [facility] [id number] 05/04/2012 09:47:00 2012 11:25:00 DIS Emergency Augustine BARNHART MD, Adam Leyva [facility] [id number] 04/25/2012 18:48:00 2012 20:20:00 DIS Emergency Harvinder Renee MD [facility] [id number] 04/24/2012 16:58:00 2012 20:07:00 DIS Emergency Hever Brown MD [facility] [id number] 04/16/2012 12:07:00 2012 15:48:00 DIS Emergency Mana HEATON, Elsa Shah [facility] [id number] 04/09/2012 15:19:00 2012 18:08:00 DIS Emergency Ronak HEATON, Bashir [facility] [id number] 04/04/2012 05:46:00 2012 14:58:00 ACT Outpatient Ye HEATON, Michela [facility] [id number] 04/02/2012 16:19:00 2012 19:20:00 DIS Emergency Caesar Florence MD [facility] [id number] 03/30/2012 19:22:00 2012 21:40:00 DIS Emergency Tim Barber MD [facility] [id number] 03/30/2012 12:44:00 2012 19:20:00 DIS Emergency Harvinder Renee MD [facility] [id number] 03/12/2012 17:25:00 2012 19:33:00 DIS Emergency Arias Hassan MD [facility] on [place] [facility] [id number] 02/25/2012 15:29:00 2012 23:59:59 CLS Emergency [id number] 05/16/2012 13:54:00 Document Registration
--- OUTSIDE RECORDS SUMMARY | 2016-05-25 09:34 | XMS REPORT | Referral Summary ---
Author Author [facility]3] Organization [facility]3] Address Unknown Phone Unavailable Care Team Providers Care Plate Gauger Name Role Phone Page, B Primary Care Physician [phone] Encounter VC Date(s): 07/12/14 - 07/12/14 [facility]3] [address] [place] [address] [phone] Discharge Diagnosis: Chronic abdominal pain Final: Other chronic pain Final: ABDOMINAL PAIN, PERIUMBILIC Final: TOBACCO USE DISORDER Discharge Disposition: 01-Home or Self Care Attending Physician: Cuauhtemoc Alvarez DO Admitting Physician: Cuauhtemoc Alvarez DO Vital Signs Most recent to 1 oldest [Reference Range]: Temperature Oral 36.8 degC [35.8-37.3 degC] (07/12/14 3:00 PM) Peripheral Pulse 67 bpm Rate [60-100 bpm] (07/12/14 5:19 PM) Heart Rate Monitored 67 bpm [60-100 bpm] (07/12/14 5:00 PM) Respiratory Rate 16 br/min [14-20 br/min] (07/12/14 5:19 PM) Blood Pressure 102/52 mmHg [90-140/60-90 mmHg] (07/12/14 5:19 PM) Mean Arterial 76 mmHg Pressure, Cuff (07/12/14 5:00 PM) SpO2 98 % (07/12/14 5:19 PM) Problem List Condition Effective Dates Status [...] 0 Refill(s) Start Date: 10/01/14 Status: Ordered [place] 7.5 mg-325 mg oral tablet 1 tabs, [...] to 1 oldest [Reference Range]: WBC [4.8-10.8 7.0 10*3/uL 10*3/uL] (07/12/14 3:33 PM) RBC [4.00-5.20 4.26 10*6/uL 10*6/uL] (07/12/14 3:33 PM) Hgb [12.0-16.0 13.5 gm/dL gm/dL] (07/12/14 3:33 PM) Hct [37.0-47.0 %] 38.3 % (07/12/14 3:33 PM) MCV [82.0-99.0 fL] 89.9 fL (07/12/14 3:33 PM) MCH [27.0-32.0 pg] 31.7 pg (07/12/14 3:33 PM) MCHC [32.0-36.0 35.2 gm/dL gm/dL] (07/12/14 3:33 PM) RDW [11.5-14.5 %] 12.6 % (07/12/14 3:33 PM) Platelet [150-400 282 10*3/uL 10*3/uL] (07/12/14 3:33 PM) MPV [9.4-12.4 fL] 10.4 fL (07/12/14 3:33 PM) Immature 0.0 % Granulocytes (07/12/14 3:33 PM) [0.0-1.0 %] Neutrophils [51-75 50 % %] *LOW* (07/12/14 3:33 PM) Lymphocytes [20-46 43 % %] (07/12/14 3:33 PM) Monocytes [4-11 %] 4 % (07/12/14 3:33 PM) Eosinophils [0-4 %] 3 % (07/12/14 3:33 PM) Basophils [0-2 %] 0 % (07/12/14 3:33 PM) Neutro Absolute 3.52 10*3 [1.90-7.00 10*3] (07/12/14 3:33 PM) Lymph Absolute 3.04 10*3 [0.80-3.30 10*3] (07/12/14 3:33 PM) [place] Absolute 0.28 10*3 [0.30-1.00 10*3] *LOW* (07/12/14 3:33 PM) Eos Absolute 0.18 10*3 [0.00-0.50 10*3] (07/12/14 3:33 PM) Baso Absolute 0.02 10*3 [0.00-0.20 10*3] (07/12/14 3:33 PM) Nucleated RBC 0.0 /100 WBC Automated [0 /100 (07/12/14 3:33 PM) WBC] Chemistry Most recent to 1 oldest [Reference Range]: Sodium Lvl [136-144 138 mEq/L mEq/L] (07/12/14 3:33 PM) Potassium Lvl 3.6 mEq/L [3.6-5.1 mEq/L] (07/12/14 3:33 PM) Chloride [99-109 108 mEq/L mEq/L] (07/12/14 3:33 PM) CO2 [22-32 mEq/L] 24 mEq/L (07/12/14 3:33 PM) AGAP [3-20] 6 (07/12/14 3:33 PM) BUN [4-20 mg/dL] 10 mg/dL (07/12/14 3:33 PM) Glucose Lvl [70-100 107 mg/dL mg/dL] *HI* (07/12/14 3:33 PM) Creatinine Lvl 0.80 mg/dL [0.44-1.03 mg/dL] (07/12/14 3:33 PM) eGFR [>60] >60 1 (07/12/14 3:33 PM) Calcium Lvl 9.1 mg/dL [8.6-10.0 mg/dL] (07/12/14 3:33 PM) Albumin Lvl [3.5-4.8 3.8 gm/dL gm/dL] (07/12/14 3:33 PM) Total Protein 6.1 gm/dL [6.1-7.9 gm/dL] (07/12/14 3:33 PM) Globulin [1.9-4.3 2.3 gm/dL gm/dL] (07/12/14 3:33 PM) ALT [14-54 U/L] 11 U/L *LOW* (07/12/14 3:33 PM) AST [15-41 U/L] 14 U/L *LOW* (07/12/14 3:33 PM) Alk Phos [26-104 60 U/L U/L] (07/12/14 3:33 PM) Bili Total [0.2-1.2 0.6 mg/dL 2 mg/dL] (07/12/14 3:33 PM) Lipase Lvl [8-48 27 U/L U/L] (07/12/14 3:33 PM) 1Result Comment: Multiply eGFR results by 1.21 for race. 2Result Comment: Naproxen, specifically the metabolite O-desmethylnaproxen, may cause spurious elevation in Total Bilirubin levels. Urinalysis Most recent to 1 oldest [Reference Range]: UA Color Lt Yellow (07/12/14 3:33 PM) UA Appear Clear (07/12/14 3:33 PM) UA pH [5.0-8.0] 6.5 (07/12/14 3:33 PM) UA Leuk Est Negative [Negative] (07/12/14 3:33 PM) UA Nitrite Negative [Negative] (07/12/14 3:33 PM) UA Protein Negative [Negative] (07/12/14 3:33 PM) UA Glucose Negative [Negative] (07/12/14 3:33 PM) UA Ketones Negative [Negative] (07/12/14 3:33 PM) UA Urobilinogen Negative [<1.0] (07/12/14 3:33 PM) UA Bili [Negative] Negative (07/12/14 3:33 PM) UA Blood [Negative] Negative (07/12/14 3:33 PM) UA Spec Grav 1.005 [1.003-1.030] (07/12/14 3:33 PM) Type Clean Catch (07/12/14 3:33 PM) Immunizations No data available for this [...]
--- OUTSIDE RECORDS SUMMARY | 2016-05-25 09:34 | XMS REPORT | Referral Summary ---
Author Author [facility] Organization [facility] Address Unknown Phone Unavailable Care Team Providers Care Band Edger Name Role Phone Page, B Primary Care Physician [phone] Encounter VC Date(s): 08/03/14 - 08/03/14 [facility] [address] [place] [address] Discharge Diagnosis: Chronic constipation Final: UNSPECIFIED INTESTINAL OBSTRUCTION Discharge Disposition: 01-Home or Self Care Attending Physician: Chente Mariscal MD Vital Signs Most recent to 1 oldest [Reference Range]: Peripheral Pulse 98 bpm Rate [60-100 bpm] (08/03/14 7:31 AM) Heart Rate Monitored 75 bpm [60-100 bpm] (08/03/14 9:30 AM) Respiratory Rate 14 br/min (08/03/14 9:43 AM) Blood Pressure 107/74 mmHg [90-140/60-90 mmHg] (08/03/14 9:15 AM) Mean Arterial 85 mmHg Pressure, Cuff (08/03/14 9:15 AM) SpO2 100 % (08/03/14 9:30 AM) Problem List Condition Effective Dates Status [...] 0 Refill(s) Start Date: 10/01/14 Status: Ordered [place] 7.5 mg-325 mg oral tablet 1 tabs, [...] surgical case 5auto-populated from documented surgical case pr2012 Social History Social History Type Response Smoking Status Current every day smoker; Tobacco use per day: Less than Pack Assessment and Plan No data available for this section
--- NOTE | 2016-05-25 09:55 | NUR ---
PROVIDER DR. SHER IN ROOM WITH PT.
--- OUTSIDE RECORDS SUMMARY | 2016-05-25 09:56 | XMS REPORT ---
Author Author [place]/[facility], [facility] - Organization Unknown Address Unknown Phone [...] responsibility of the patient or patient customer operations representative to confirm the list of medications [...]
--- OUTSIDE RECORDS SUMMARY | 2016-05-25 09:56 | XMS REPORT ---
Author Author [place]/[facility], [facility] - Organization Unknown Address Unknown Phone [...] the responsibility of the patient or patient tour sales representative to confirm the list of medications [...]
[2016-05-25 09:57] LABS: BASOPHILS % (AUTO) 0.4 % (0-2); EOSINOPHILS # (AUTO) 0.3 T/MM3 (0-0.5); EOSINOPHILS % (AUTO) 5.7 % (0-4); HCT - HEMATOCRIT 41.6 % (36-46); HGB - HEMOGLOBIN 13.8 GM/DL (12-16); LYMPHOCYTES # (AUTO) 2.2 T/MM3 (1-4.8); LYMPHOCYTES % (AUTO) 45.5 % (23-45); MEAN CORPUSCULAR HGB 31.1 UUG (26-34); MEAN CORPUSCULAR HGB CONC(MCHC 33.2 GM/DL (31-37); MEAN CORPUSCULAR VOLUME 93.7 UM3 (80-100); MONOCYTES # (AUTO) 0.4 T/MM3 (0-0.8); MONOCYTES % (AUTO) 7.8 % (0-9.0); NEUTROPHILS #(AUTO)-ABSOLUTE 1.9 T/MM3 (1.8-7.7); NEUTROPHILS % (AUTO) 40.6 % (33-66); RED BLOOD COUNT 4.44 M/MM3 (4.00-5.20); WBC - WHITE BLOOD COUNT 4.8 T/MM3 (4.5-11.0)
--- OUTSIDE RECORDS SUMMARY | 2016-05-25 09:57 | XMS REPORT ---
Author Author [place]/[facility], [facility] - Organization Unknown Address Unknown [...]
--- OUTSIDE RECORDS SUMMARY | 2016-05-25 09:57 | XMS REPORT | Continuity of Care Document ---
Author Author [facility] Organization [facility] Address Unknown Phone Unavailable Care Team Providers Care Pipe [address] Service Name Role Phone OTHER Primary Care Physician [phone] Insurance Providers Payer Name Policy Number Subscriber Name Relationship [employer] [id number] Indigo Gee 16 Self Problems Medical Problems [...] F (96.8 - 99.1) Temperature (Calculated Celsius) 36.57631 degrees C (36.0 - 37.3) Pulse Rate [...] specimen been collected /obtained? Y Urine Specific [place] September 28, 2013 3:30pm 1.020 - Has [...] 2013 2:28pm Name: INDIGO GEE Unit #: [id number] : 1980 Sex: F Loc / Svc: ED DOS: 09/28/13 Signed Report #: [id number] DIAGNOSTIC IMAGING REPORT TYPE OF EXAM: ABDOMEN [...] ADDON completed 07/19/13 TX/PRO/DX INJ SAME DRUG SENIOR J2EE DEVELOPER completed 07/19/13 THER/PROPH/DIAG INJ IV PUSH completed 09/16/13 TX/PRO/DX INJ NEW DRUG ADDON completed 09/16/13 TX/PRO/DX INJ SAME DRUG SENIOR J2EE DEVELOPER completed 09/16/13 Encounters Encounter Location Date/Time Departed Emergency Room [facility] 09/28/13 1:59pm Departed Emergency Room [facility] 09/16/13 6:52pm Departed Emergency Room [facility] 07/19/13 5:11pm Recent Diagnosis
--- OUTSIDE RECORDS SUMMARY | 2016-05-25 09:57 | XMS REPORT | Continuity of Care Document ---
Author Author [facility] Organization [facility] Address Unknown Phone Unavailable Care Team Providers Care Financial Operations Consultant Name Role Phone OTHER Primary Care Physician [phone] Insurance Providers Payer Name Policy Number Subscriber Name Relationship [employer] [id number] Indigo Gee 16 Self Problems Medical Problems [...] F (96.8 - 99.1) Temperature (Calculated Celsius) 36.59119 degrees C (36.0 - 37.3) Pulse Rate [...] specimen been collected /obtained? Y Urine Specific [place] September 16, 2013 9:40pm >=1.030 H - [...] 2013 2:28pm Name: INDIGO GEE Unit #: [id number] : 1980 Sex: F Loc / Svc: ED DOS: 07/19/13 Signed Report #: [id number] DIAGNOSTIC IMAGING REPORT TYPE OF EXAM: CT [...] pelvis. There is a preliminary report by [facility]. . Procedures Procedure Status Date Provider(s) THER/PROPH/DIAG INJ IV PUSH completed 06/23/13 TX/PRO/DX INJ NEW DRUG ADDON completed 06/23/13 TX/PRO/DX INJ SAME DRUG SISAL OPERATOR completed 06/23/13 HYDRATE IV INFUSION ADD-ON completed 06/23/13 THER/PROPH/DIAG INJ IV PUSH completed 07/19/13 TX/PRO/DX INJ NEW DRUG ADDON completed 07/19/13 TX/PRO/DX INJ SAME DRUG SISAL OPERATOR completed 07/19/13 Encounters Encounter Location Date/Time Departed Emergency Room [facility] 09/16/13 6:52pm Departed Emergency Room [facility] 07/19/13 5:11pm Departed Emergency Room [facility] 06/23/13 7:31pm Recent Diagnosis
--- OUTSIDE RECORDS SUMMARY | 2016-05-25 09:57 | XMS REPORT | Continuity of care Document ---
[...] MG/DL (65-99 MG/DL) GFR EST NON AFR TUNISIAN >=90 ML/MIN GFRA EST AFR AMER >=90 [...] - CT ABD/PELVIS W/ CONTRAST CPT Code(s): 51409-; ; ; INDICATION / CLINICAL HISTORY: Abdominal [...]
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
[2016-05-25] MEDS ORDERED: ONDANSETRON 4mg/2ml INJECTION IV ONE (10:00)
[2016-05-25] MEDS ORDERED: NORMAL SALINE 1,000 ML IV ONE (10:00)
[2016-05-25] MEDS ORDERED: MORPHINE SULFATE 4 MG SYRINGE IV ONE (10:00)
[2016-05-25 10:07] LABS: ALBUMIN 4.5 G/DL (3.5-5.0); ALBUMIN/GLOBULIN RATIO 1.5 RATIO (1.1-2.2); ALKALINE PHOSPHATASE 74 U/L (38-126); ALT (SGPT) 26 U/L (9-52); ANION GAP 14 MEQ/L (5-15); AST (SGOT) 17 U/L (14-36); BUN/CREATININE RATIO 23 RATIO (6-26); CHLORIDE 104 MEQ/L (98-107); CO2 - CARBON DIOXIDE 28 MEQ/L (22-30); CREATININE 0.8 MG/DL (0.7-1.2); GLOMERULAR FILTRATION RATE 81; GLUCOSE 65 MG/DL (65-110); LIPASE 66 U/L (23-300); POTASSIUM 4.2 MEQ/L (3.6-5); SODIUM 146 MEQ/L (134-144); TOTAL PROTEIN 7.5 G/DL (6.3-8.2)
[2016-05-25 10:31] LABS: BLOOD, URINE NEGATIVE (NEGATIVE); COLOR,URINE YELLOW (YELLOW); LEUKOCYTE ESTERASE ,URINE NEGATIVE (NEGATIVE); NITRITE,URINE NEGATIVE (NEGATIVE); UROBILINOGEN,URINE 0.2 EU/DL (NORMAL)
[2016-05-25] MEDS ORDERED: CLON0.5T PO (10:38)
[2016-05-25] MEDS ORDERED: HYDR25TA85 PO (10:38)
[2016-05-25] MEDS ORDERED: TRAZ-173 PO (10:39)
[2016-05-25] MEDS ORDERED: IBUP200C62 PO (10:40)
[2016-05-25] MEDS ORDERED: PALI6TAB PO (10:40)
--- NOTE | 2016-05-25 10:40 | NUR ---
CT PT TO CT.
[2016-05-25] MEDS ORDERED: SALINE FLUSH 10ml SYRINGE ONE (10:41)
[2016-05-25] MEDS ORDERED: NORMAL SALINE 100 ML ONE (10:41)
[2016-05-25] MEDS ORDERED: IOHEXOL 300 MG/ML 75ml INJECTION ONE (10:41)
--- NOTE | 2016-05-25 10:54 | NUR ---
CT PT RETURNED FROM CT.
--- NOTE | 2016-05-25 11:00 | NUR ---
PT STATUS/PROVIDER PT RETURNED FROM CT AND DOES NOT APPEAR TO BE IN ANY DISTRESS, RESTING COMFORTABLY. WHEN ASKED ABOUT PAIN POST MORPHINE PT STATES SHE IS STILL HAVING SEVERE PAIN WHICH SHE RATES A 7/10 BUT DENIES ANY FURTHER NAUSEA. PROVIDER NOTIFIED OF PT'S REPORTED PAIN STATUS, NO NEW ORDERS AT THIS TIME.
--- NOTE | 2016-05-25 11:19 | DI ---
Indication: ITS.REASON: Right lower abdominal pain PROCEDURE: CT ABD/PELVIS W/CONTRAST ONLY: Encounter: Initial Comparison: CT abdomen and pelvis dated July 19, 2013 Technique: Axial CT images were performed through the abdomen and pelvis after the administration of intravenous contrast. Coronal and sagittal two-dimensional reformats. Automated Exposure Control and Iterative Reconstruction dose reducing techniques were utilized. Contrast: Omnipaque 300 75 mL Findings: The lung bases are clear. The liver is normal. The gallbladder is normal. Ventral soft tissue defect with small and large bowel loops very close to the skin surface as seen on prior studies. The spleen, pancreas and adrenal glands are within normal limits. The kidneys are normal. Retroaortic left renal vein noted incidentally. No abdominal or pelvic lymphadenopathy. Prior bowel surgery with multiple anastomotic suture lines in the colon. Bladder appears normal. Uterus is absent. No free fluid. No evidence of a small bowel obstruction. Moderate to large amount of stool throughout the colon. Prior left pelvic fluid collection has resolved. I do not definitely identify the appendix and it may be surgically absent. Impression: No acute disease process seen in the abdomen or pelvis. .
[2016-05-25] MEDS ORDERED: OXYC1TAB8 PO (11:49)
[2016-05-25] MEDS ORDERED: ONDA4TAB7 PO (11:49)
--- NOTE | 2016-05-25 11:50 | ERPDOC ---
Departure Disposition Decision Date: May 25, 2016 Disposition Decision Time: 11:48 Disposition: 01 DISCHARGED HOME, SELF-CARE Impression Impression Impression: Primary Impression: Abdominal pain, chronic, generalized Severity: Moderate Condition: Improved Seen By: Physician only Referrals: [facility] 2 Days Patient Instructions: Chronic Abdominal Pain (ED) Problems/Meds/Labs Reviewed?: Yes Medications reviewed and manag: Yes Follow up care ordered?: Yes Mental Status: Alert, Oriented Scripts Ondansetron (Zofran Odt) 4 Mg Tab.rapdis 4 MG PO Q4HR Y for NAUSEA &/OR VOMITING for 2 Days, #12 TAB 0 Refills Prov: TOYIN SHER DO 05/25/16 Oxycodone HCl/Acetaminophen (Percocet 5-325 mg Tablet) 5-325 Tablet 1 TAB PO Q4HR Y for PAIN for 2 Days, #12 TAB 0 Refills Prov: TOYIN SHER DO 05/25/16 HPI - Abdominal Pain General Chief Complaint: Abdominal Pain Stated Complaint: ABD PAIN, ( PT HAS A HERNIA), LOOSE STOOLS Time Seen by Provider: 09:38 Source: patient History/Exam Limitations: no limitations HPI - Abdominal Pain Initial Comments 35-year-old female with chronic abdominal pain presents the emergency department with a chief complaint of a typical exacerbation of her chronic abdominal pain and one episode of diarrhea without blood or mucus. Patient denies any other complaints or associated symptoms. Her discomfort is generalized. No radiation. It is moderate in nature. She's been out of her pain medications for the past several weeks. She was at home when her symptoms began. Symptoms have been persistent in nature since onset. No other complaints or associated symptoms. This is a typical exacerbation of the patient's chronic pain. Occurred At: home Onset: Gradual Allergies: Coded Allergies: Penicillins (Verified Allergy, Unknown, 05/25/16) tramadol (Verified Allergy, Unknown, 05/25/16) Past History Past Medical History Hx Echocardiogram: No Respiratory: asthma GI: other Neurological: seizures Musculoskeletal: back pain Psychological: anxiety, depression Surgical History General: exploratory laparotomy, other Reproductive/: , hysterectomy, tubal ligation Family History Family PMH: FOUND: hypertension Vaccines Hx Influenza Vaccination: Yes (FALL 2012) Social History Smoking Status: Current every day smoker # of Packs/Tins per Day: 0.5 Substance Use Type: does not use Alcohol Intake: none Sexuality: male partner Review of Systems Constitutional Constitutional: DENIES: chills, fever Eyes General: DENIES: erythema, exudate Lids/Accessories: DENIES: erythema, swelling Vision: DENIES: acuity, blurring ENMT Ears: DENIES: drainage, erythema Hearing: DENIES: hearing loss Balance: DENIES: ataxia, falling to one side Sinuses: DENIES: congestion, pain Nose: DENIES: nosebleeds, pain Mouth/Throat: DENIES: painful swallowing, sore throat Teeth: DENIES: pain Jaw: DENIES: pain Cardiovascular Cardiac: DENIES: chest pain, dyspnea on exertion Rhythm/Rate: DENIES: irregular beat, palpitations Vascular: DENIES: pedal edema, unilateral swelling Pulmonary Respiratory: DENIES: cough, dyspnea, pleuritic chest pain, sputum GI Upper Abdomen: pain, DENIES: nausea, vomiting Lower Abdomen: diarrhea, pain General: DENIES: dysuria, frequency Musculoskeletal General: DENIES: joint pain, tenderness Integumentary Skin: DENIES: itching, rash Neurological General: DENIES: headache, numbness, weakness Psychiatric Psychiatric: DENIES: emotional instability, suicidal ideation/attempt Endocrine Endocrine: DENIES: polydipsia, polyphagia Hematologic/Lymphatic Hematologic/Lymphatic: DENIES: frequent nosebleeds, lymphadenopathy Allergic/Immunological Allergic/Immunoligical: DENIES: allergic reactions, hives Physical Exam General General Nourishment: well nourished, well developed, appears stated age, no acute distress, adult General Body Habitus: well groomed Vitals and Pain First Documented Vital Signs Date Time Temp Pulse Resp B/P Pulse Ox O2 Delivery O2 Flow Rate FiO2 05/25/16 09:25 97.5 92 18 110/68 100 Room Air Weight: Kilograms: 59.500 Height (feet): 5 Height (inches): 6.00 Triage Pain Scale: RN VS reviewed by Provider: Yes Normal Exams: Head: Normocephalic w/o trauma Eyes: Pupils are PERRLA w/ EOMI, No scleral icterus, irritation, or foreign bodies noted ENMT: No facial trauma, nasal exudates, pharyngeal erythema, or exudates are noted Dental: No fractured, loose, or missing teeth noted Neck: Full range of motion, without adenopathy, JVD, bruits or thyromegaly Chest/Resp: Clear all morrow, with good airflow, and symmetry bilaterally CV: Regular rate and rhythm, without murmur or gallop, Pulses 2+ all extremities, capillary refill, <2 seconds all ext., no pedal edema noted Abdomen: Bowel sounds positive, non-distended, no hepatosplenomegaly, masses or bruits noted Lymphatic: No lymphadenopathy, or lymphedema noted Musculoskeletal: No tenderness, or deformity noted, good range of motion, all extremities Integumentary: No rashes, hives, or bruising noted, hair and nails, without abnormality Neurologic: Patient is alert, and oriented, cranial nerves, motor/sensory/ cerebellar, exams w/o gross deficits, to observation Psychiatric: Patient exhibits, appropriate attention, emotion and affect Abdomen (brief) Comments Soft. Mildly tender generalized to palpation. No rebound or guarding. No CVA tenderness. Differential Diagnoses Considering: Bowel Obstruction, Diverticulitis, Hernia, IBS, Ileus Progress Results/Orders Orders Procedure Category Date Status Time Cbc W/Auto LAB 05/25/16 Complete Diff-Reflex Manual Cmp - Comprehensive LAB 05/25/16 Complete Metabolic Lipase LAB 05/25/16 Complete Ua, Dip Wreflex LAB 05/25/16 Complete [employer] Port[employer] Management Marketing 09:40 LAB 05/25/16 Complete Qualitative, Urine 09:40 Normal Saline (Normal PHA 05/25/16 Complete Saline Iv) 10:00 Ondansetron Inj PHA 05/25/16 Complete (Zofran) 10:00 Morphine Sulfate PHA 05/25/16 Complete (Morphine) 10:00 Ct Abd/Pelvis CT 05/25/16 Resulted W/Contrast Only 10:16 Iohexol (Omnipaque) PHA 05/25/16 Complete 10:41 Normal Saline (Ns) PHA 05/25/16 Complete 10:41 Saline Flush (Iv PHA 05/25/16 Complete Flush) 10:41 Lactate - Lactic Acid LAB 05/25/16 Complete Lab Results Laboratory Tests Test 05/25/16 09:50 05/25/16 10:20 05/25/16 11:18 White Blood Count 4.8T/MM3 Red Blood Count 4.44M/MM3 Hemoglobin 13.8GM/DL Hematocrit 41.6% Mean Corpuscular Volume 93.7UM3 Mean Corpuscular Hemoglobin 31.1UUG Mean Corpuscular Hemoglobin Concent 33.2GM/DL RDW Standard Deviation 44.2FL Platelet Count 252T/MM3 Mean Platelet Volume 10.0UM3 Immature Granulocyte % (Auto) 0.0% Neutrophils (%) (Auto) 40.6% Lymphocytes (%) (Auto) 45.5% Monocytes (%) (Auto) 7.8% Eosinophils (%) (Auto) 5.7% Basophils (%) (Auto) 0.4% Absolute Immature Granulocyte (auto 0.00T/MM3 Absolute Neutrophils (auto) 1.9T/MM3 Absolute Lymphocytes (auto) 2.2T/MM3 Absolute Monocytes (auto) 0.4T/MM3 Absolute Eosinophils (auto) 0.3T/MM3 Absolute Basophils (auto) 0.0T/MM3 Turbidity < 20 Sodium Level 146MEQ/L Potassium Level 4.2MEQ/L Chloride Level 104MEQ/L Carbon Dioxide Level 28MEQ/L Anion Gap 14MEQ/L Blood Urea Nitrogen 18.0MG/DL Creatinine 0.8MG/DL Glomerular Filtration Rate Calc 81 BUN/Creatinine Ratio 23RATIO Glucose Level 65MG/DL Calculated Osmolality 281MOSM/KG Calcium Level 10.0MG/DL Total Bilirubin 0.80MG/DL Icterus Index < 2 Aspartate Amino Transf (AST/SGOT) 17U/L Alanine Aminotransferase (ALT/SGPT) 26U/L Alkaline Phosphatase 74U/L Total Protein 7.5G/DL Albumin 4.5G/DL Globulin 3.0G/DL Albumin/Globulin Ratio 1.5RATIO Lipase 66U/L Chemistry Specimen Hemolysis < 15 Urine Collection Type Cleancatch-midstream Urine Color Yellow Urine Turbidity Clear Urine pH 6.5 Urine Specific [place] 1.015 Urine Protein Negative Urine Glucose (UA) Negative Urine Ketones Negative Urine Blood Negative Urine Nitrite Negative Urine Bilirubin Negative Urine Urobilinogen 0.2EU/DL Urine Leukocyte Esterase Negative Urinalysis Comment Microscopic not ind. Urine Test Negative Plasma Lactate 0.6MMOL/L Medications Current ED Medications Sodium Chloride (Normal Saline IV) 1,000 ml @ 999 mls/hr Q1H1M ONCE IV Last administered on 05/25/16 10:21; Start 05/25/16 at 10:00; Stop 05/25/16 at 11:00; Status DC Ondansetron HCl (Zofran) 4 mg O ONCE IV Last administered on 05/25/16 10:22; Start 05/25/16 at 10:00; Stop 05/25/16 at 10:01; Status DC Morphine Sulfate (Morphine) 4 mg O ONCE IV Last administered on 05/25/16 10:22 ; Start 05/25/16 at 10:00; Stop 05/25/16 at 10:01; Status DC Iohexol 1 bottle 1 bottle STK-MED ONCE .ROUTE ; Start 05/25/16 at 10:41; Stop 05/25/16 at 10:42; Status DC Sodium Chloride (NS) 100 ml @ As Directed STK-MED ONCE .ROUTE ; Start 05/25/16 at 10:41; Stop 05/25/16 at 10:42; Status DC Sodium Chloride (Iv Flush) 10 ml STK-MED ONCE .ROUTE ; Start 05/25/16 at 10:41; Stop 05/25/16 at 10:42; Status DC Progress Progress Labs/imaging were discussed in detail with the patient and questions are answered. Patient is given IV hydration. Patient is given parental narcotic and antiemetic medications intravenously with improvement of symptoms. Patient is discharged home in improved condition. Patient is to follow up as instructed. She is to return to the emergency Department if her condition worsens or changes in any manner. She is in agreement with the current plan of management. EKG EKG : Rate: 60-100 Rhythm: sinus [place]: normal QRS: normal Intervals: normal ST/T: normal Interpreted by: signing physician CT CT : CT: Abd/Pelvis IV contrast Interpretation: Normal, Reviewed Written Report TOYIN SHER DO May 25, 2016 11:50
[2016-05-25 12:00] VITALS: BP 110/66; PULSE 68; RESP 14; TEMP 97.5; O2SAT 100
== END 2016-05-25 12:00 | disposition home or self-care (01) ==
LOC: ED 09:20
DX: R10.84 Generalized abdominal pain (principal); G89.29 Other chronic pain; R19.7 Diarrhea, unspecified
CPT/HCPCS: 36415; 80053; 81003; 81025; 83605; 83690; 85025

== ENCOUNTER 2016-06-22 14:00 | Emergency (ER) | payer MEDICAID ==
[~2016-06-22] VITALS: Ht 167.6 cm; Wt 59.1 kg
[~2016-06-22 14:00] MED LIST changes: +CLON0.5T PO; -HYDR-4246 PO; +HYDR25TA85 PO; +IBUP200C62 PO; +OXYC1TAB8 PO; +PALI6TAB PO; +TRAZ-173 PO
--- OUTSIDE RECORDS SUMMARY | 2016-06-22 14:04 | XMS REPORT ---
Author Author [facility] - Organization Unknown Address Unknown [...] the responsibility of the patient or patient b2b outside sales representative to confirm the list of [...]
--- OUTSIDE RECORDS SUMMARY | 2016-06-22 14:05 | XMS REPORT | Continuity of Care Document ---
Author Author [facility] Organization [facility] Address Unknown Phone Unavailable Care Team Providers Care Hammer Driver Name Role Phone OTHER Primary Care Physician [phone] Insurance Providers Payer Name Policy Number Subscriber Name Relationship Sole [employer] [id number] Indigo Gee 16 Self Problems Medical Problems [...] F (96.8 - 99.1) Temperature (Calculated Celsius) 36.02750 degrees C (36.0 - 37.3) Pulse Rate [...] specimen been collected /obtained? Y Urine Specific [place] September 28, 2013 3:30pm 1.020 - Has [...] 2013 2:28pm Name: INDIGO GEE Unit #: [id number] : 1980 Sex: F Loc / Svc: ED DOS: 09/28/13 Signed Report #: [id number] DIAGNOSTIC IMAGING REPORT TYPE OF EXAM: ABDOMEN [...] ADDON completed 07/19/13 TX/PRO/DX INJ SAME DRUG SALES PLANNING ANALYST completed 07/19/13 THER/PROPH/DIAG INJ IV PUSH completed 09/16/13 TX/PRO/DX INJ NEW DRUG ADDON completed 09/16/13 TX/PRO/DX INJ SAME DRUG SALES PLANNING ANALYST completed 09/16/13 Encounters Encounter Location Date/Time Departed Emergency Room [facility] 09/28/13 1:59pm Departed Emergency Room [facility] 09/16/13 6:52pm Departed Emergency Room [facility] 07/19/13 5:11pm Recent Diagnosis
--- OUTSIDE RECORDS SUMMARY | 2016-06-22 14:05 | XMS REPORT | Continuity of Care Document ---
Author Author [facility] Organization [facility] Address Unknown Phone Unavailable Support Name Relationship Address Phone TOYIN SHER DO Caregiver [address] [place] [address] Unavailable SHAE HART Next Of Kin Unknown [phone] Insurance Providers Guarantor Indigo Ching Address [address] [place] [address] Email [email or web address] Payer Self Pay Subscriber's Name Indigo Ching Relationship 18 Self Advance Directives Directive Response Recorded Date/Time Advanced Directives Type None 05/25/16 9:25am Chief Complaint and Reason for Visit Chief Complaint Abdominal Pain Reason for Visit [id number] Problems Active Problems Medical Problem Onset Date Status ABD PAIN, URI, CONSTIPATION Unknown Acute ABDOMINAL PAIN - ACUTE ON CHRONIC Unknown Acute ABDOMINAL PAIN - ACUTE ON CHRONIC Unknown Acute Abdominal pain Unknown Acute Abdominal pain Unknown Acute Abdominal pain, chronic, generalized Unknown Acute Constipation Unknown Acute Contusion Unknown Acute Hernia Unknown Acute Hernia Unknown Acute Nausea Unknown Acute Nausea and vomiting Unknown Acute Nausea and vomiting Unknown Acute Sacral fracture, closed Unknown Acute Sacral fracture, closed Unknown Acute Viral Infection not otherwise specified Unknown Acute Vomiting Unknown Acute Medications Current Home Medications Medication Dose Units Route Directions Days Qty Instructions Start Date Albuterol Sulfate (Albuterol Sulfate Hfa) 8.5 Gm Hfa.aer.ad 2 Puff Inhalation As Needed as needed for Shortness Of Air 09/28/13 Clonazepam (Klonopin) 0.5 Mg Tablet 0.5 Tab Oral Twice A Day as needed for Anxiety 05/25/16 Divalproex Sodium (Depakote) 500 Mg Tablet.dr 1,000 Mg Oral Twice A Day as needed for Seizures 07/19/13 Hydroxyzine Hcl 25 Mg Tablet 25 Mg Oral Every 8 Hours 05/25/16 Ibuprofen 200 Mg Capsule 2 Cap Oral Every 4 Hours as needed for Pain 05/25/16 Ondansetron (Zofran Odt) 4 Mg Tab.rapdis 4 Mg Oral Every 4 Hours as needed for Nausea &/Or Vomiting 2 Days 12 Tablet 05/25/16 Oxycodone Hcl/Acetaminophen (Percocet 5-325 Mg Tablet) 5-325 Tablet 1 Tab Oral Every 4 Hours as needed for Pain 2 Days 12 Tablet 05/25/16 Paliperidone (Invega) Unknown Strength Tab.er.24 1 Tab Oral Daily 05/25/16 Trazodone Hcl 100 Mg Tablet 100 Mg Oral Bedtime as needed for Prn Orders 05/25/16 Social History Social History Problem Response Recorded Date/Time Onset Date Status Chewing Tobacco Status No 05/25/2016 9:40am Not Applicable Not Applicable Hx Substance Use No 05/25/2016 9:40am Not Applicable Not Applicable Hx Alcohol Use No 05/25/2016 9:40am Not Applicable Not Applicable Tobacco Usage smoke 07/19/2013 10:09pm Not Applicable Not Applicable Query Response Start Date Stop Date Smoking Status Current every day smoker Hospital Discharge Instructions No hospital discharge instructions. Plan of Care Discharge Date 05/25/16 12:00pm Disposition 01 DISCHARGED HOME, SELF-CARE Condition at Discharge Improved Instructions/Education Provided Chronic Abdominal Pain (ED) Prescriptions See Medication Section Referrals [facility] Order Date: 2 Days Care Plan and Goals Physician Care Plan Problem: Chronic Abdominal Pain Goal: Follow up with primary care provider Instructions: Take medications and follow care plan as discussed/written Functional Status No functional status results. Allergies, Adverse Reactions, Alerts Allergen Type Severity Reaction Status Last Updated Penicillin Allergy Unknown Active 05/25/16 Tramadol Allergy Unknown Active 05/25/16 Immunizations Query Response on File Recorded Date/Time Hx Influenza Vaccination Y fall 201209/28/13 2:04pm Hx Influenza Vaccination Y fall 201209/28/13 2:04pm Influenza Vaccine Hx NO 05/25/16 9:40am Vital Signs Acute Vital Signs Vital Response Date/Time Temperature (Fahrenheit) 97.5 deg F (96.8 - 99.1) 05/25/2016 12:00pm Temperature (Calculated Celsius) 36.88668 degrees C (36.0 - 37.3) 05/25/2016 12:00pm Pulse Rate (adult) 68 bpm (60 - 100) 05/25/2016 12:00pm Respiratory Rate 14 breaths/min (10 - 20) 05/25/2016 12:00pm O2 Sat by Pulse Oximetry 100 % (90 - 100) 05/25/2016 12:00pm Blood Pressure 110/66 mm Hg 05/25/2016 12:00pm Height (Feet) 5 feet 05/25/2016 9:25am Height (Inches) 6.00 inches 05/25/2016 9:25am Weight (Kilograms) 59.500 kg 05/25/2016 9:25am Body Mass Index (BMI) 21.0 05/25/2016 9:25am Results Laboratory Results Test Name Result Units Flags Reference Collection Date/Time Result Date/ Time Comments White Blood Count 4.8 T/MM3 4.5-11.0 05/25/2016 9:50am 05/25/2016 9: 57am Red Blood Count 4.44 M/MM3 4.00-5.20 05/25/2016 9:50am 05/25/2016 9: 57am Hemoglobin 13.8 GM/DL 12-16 05/25/2016 9:50am 05/25/2016 9:57am Hematocrit 41.6 % 36-46 05/25/2016 9:50am 05/25/2016 9:57am Mean Corpuscular Volume 93.7 UM3 80-100 05/25/2016 9:50am 05/25/2016 9: 57am Mean Corpuscular Hemoglobin 31.1 UUG 26-34 05/25/2016 9:50am 2016 9:57am Mean Corpuscular Hemoglobin Concent 33.2 GM/DL 31-37 05/25/2016 9:50am 05/25/2016 9:57am RDW Standard Deviation 44.2 FL 36.9-50.2 05/25/2016 9:50am 05/25/2016 9 :57am Platelet Count 252 T/MM3 130-400 05/25/2016 9:50am 05/25/2016 9:57am Mean Platelet Volume 10.0 UM3 9.4-12.4 05/25/2016 9:50am 05/25/2016 9: 57am Neutrophils (%) (Auto) 40.6 % 33-66 05/25/2016 9:50am 05/25/2016 9: 57am Lymphocytes (%) (Auto) 45.5 % H 23-45 05/25/2016 9:50am 05/25/2016 9: 57am Monocytes (%) (Auto) 7.8 % 0-9.0 05/25/2016 9:50am 05/25/2016 9:57am Eosinophils (%) (Auto) 5.7 % H 0-4 05/25/2016 9:50am 05/25/2016 9:57am Basophils (%) (Auto) 0.4 % 0-2 05/25/2016 9:50am 05/25/2016 9:57am Immature Granulocyte % (Auto) 0.0 % 0.0-0.5 05/25/2016 9:50am 2016 9:57am Absolute Neutrophils (auto) 1.9 T/MM3 1.8-7.7 05/25/2016 9:50am 2016 9:57am Absolute Lymphocytes (auto) 2.2 T/MM3 1-4.8 05/25/2016 9:50am 2016 9:57am Absolute Monocytes (auto) 0.4 T/MM3 0-0.8 05/25/2016 9:50am 05/25/2016 9:57am Absolute Eosinophils (auto) 0.3 T/MM3 0-0.5 05/25/2016 9:50am 2016 9:57am Absolute Basophils (auto) 0.0 T/MM3 0-0.2 05/25/2016 9:50am 05/25/2016 9:57am Absolute Immature Granulocyte (auto 0.00 T/MM3 0.00-0.03 05/25/2016 9: 50am 05/25/2016 9:57am Icterus Index < 2 0-7 05/25/2016 9:50am 05/25/2016 10:07am Chemistry Specimen Hemolysis < 15 0-25 05/25/2016 9:50am 05/25/2016 10:07am 0-25: Specimen Exhibited No Hemolysis. Turbidity < 20 0-20 05/25/2016 9:50am 05/25/2016 10:07am Sodium Level 146 MEQ/L H 134-144 05/25/2016 9:50am 05/25/2016 10:07am Potassium Level 4.2 MEQ/L 3.6-5 05/25/2016 9:50am 05/25/2016 10:07am Chloride Level 104 MEQ/L 98-107 05/25/2016 9:50am 05/25/2016 10:07am Carbon Dioxide Level 28 MEQ/L 22-30 05/25/2016 9:5005/25/2016 10: 07am Anion Gap 14 MEQ/L 5-15 05/25/2016 9:50am 05/25/2016 10:07am Blood Urea Nitrogen 18.0 MG/DL H 7-17 05/25/2016 9:50am 05/25/2016 10: 07am Creatinine 0.8 MG/DL 0.7-1.2 05/25/2016 9:50am 05/25/2016 10:07am BUN/Creatinine Ratio 23 RATIO 6-26 05/25/2016 9:50am 05/25/2016 10: 07am Glomerular Filtration Rate Calc 81 05/25/2016 9:5005/25/2016 10: 07am Glucose Level 65 MG/DL 65-110 05/25/2016 9:50am 05/25/2016 10:07am Calculated Osmolality 281 MOSM/KG H 261-280 05/25/2016 9:502016 10:07am Calcium Level 10.0 MG/DL 8.4-10.2 05/25/2016 9:5005/25/2016 10:07am Total Bilirubin 0.80 MG/DL 0.20-1.30 05/25/2016 9:5005/25/2016 10: 07am Alkaline Phosphatase 74 U/L 38-126 05/25/2016 9:50am 05/25/2016 10: 07am Total Protein 7.5 G/DL 6.3-8.2 05/25/2016 9:5005/25/2016 10:07am Albumin 4.5 G/DL 3.5-5.0 05/25/2016 9:5005/25/2016 10:07am Globulin 3.0 G/DL 2.4-3.6 05/25/2016 9:50am 05/25/2016 10:07am Albumin/Globulin Ratio 1.5 RATIO 1.1-2.2 05/25/2016 9:50am 05/25/2016 10:07am Aspartate Amino Transf (AST/SGOT) 17 U/L 14-36 05/25/2016 9:50am 2016 10:07am Alanine Aminotransferase (ALT/SGPT) 26 U/L 9-52 05/25/2016 9:50am 05/25 10:07am Lipase 66 U/L 23-300 05/25/2016 9:50am 05/25/2016 10:07am Plasma Lactate 0.6 MMOL/L 0.6-2.2 05/25/2016 11:18am 05/25/2016 11: 35am Urine Collection Type CLEANCATCH-MIDSTREAM 05/25/2016 10:20am 05/25 10:31am Urine Color YELLOW YELLOW 05/25/2016 10:20am 05/25/2016 10:31am Urine Turbidity CLEAR CLEAR 05/25/2016 10:20am 05/25/2016 10:31am Urine Specific [place] 1.015 1.015-1.025 05/25/2016 10:20am 2016 10:31am Urine pH 6.5 5.0-8.0 05/25/2016 10:20am 05/25/2016 10:31am Urine Leukocyte Esterase NEGATIVE NEGATIVE 05/25/2016 10:20am 2016 10:31am Urine Nitrite NEGATIVE NEGATIVE 05/25/2016 10:20am 05/25/2016 10: 31am Urine Protein NEGATIVE NEGATIVE 05/25/2016 10:20am 05/25/2016 10: 31am Urine Glucose (UA) NEGATIVE NEGATIVE 05/25/2016 10:20am 05/25/2016 10 :31am Urine Ketones NEGATIVE NEGATIVE 05/25/2016 10:20am 05/25/2016 10: 31am Urine Urobilinogen 0.2 EU/DL NORMAL 05/25/2016 10:20am 05/25/2016 10: 31am Urine Bilirubin NEGATIVE NEGATIVE 05/25/2016 10:20am 05/25/2016 10: 31am Urine Blood NEGATIVE NEGATIVE 05/25/2016 10:20am 05/25/2016 10:31am Urinalysis Comment MICROSCOPIC NOT IND. 05/25/2016 10:20am 2016 10:31am Name: INDIGO CHING Unit #: [id number] : 1980 Sex: F Admit Date: Loc / Svc: ED Discharge Date: DIAGNOSTIC IMAGING REPORT Report #: [id number] [facility] SAURABH Hutchinson Indication: ITS.REASON: Right lower abdominal pain PROCEDURE: CT ABD/PELVIS W/CONTRAST ONLY: Encounter: Initial Comparison: CT abdomen and pelvis dated July 19, 2013 Technique: Axial CT images were performed through the abdomen and pelvis after the administration of intravenous contrast. Coronal and sagittal two-dimensional reformats. Automated Exposure Control and Iterative Reconstruction dose reducing techniques were utilized. Contrast: Omnipaque 300 75 mL Findings: The lung bases are clear. The liver is normal. The gallbladder is normal. Ventral soft tissue defect with small and large bowel loops very close to the skin surface as seen on prior studies. The spleen, pancreas and adrenal glands are within normal limits. The kidneys are normal. Retroaortic left renal vein noted incidentally. No abdominal or pelvic lymphadenopathy. Prior bowel surgery with multiple anastomotic suture lines in the colon. Bladder appears normal. Uterus is absent. No free fluid. No evidence of a small bowel obstruction. Moderate to large amount of stool throughout the colon. Prior left pelvic fluid collection has resolved. I do not definitely identify the appendix and it may be surgically absent. Impression: No acute disease process seen in the abdomen or pelvis. . Procedures No known history of procedures. Encounters Encounter Location Arrival/Admit Date Discharge/Depart Date Attending Provider Departed Emergency Room [facility] 05/25/16 9:20am 05/25/16 12: 00pm TOYIN SHER DO Recent Diagnosis
--- OUTSIDE RECORDS SUMMARY | 2016-06-22 14:05 | XMS REPORT ---
Author Author [facility], [facility] - Organization Unknown Address Unknown [...] the responsibility of the patient or patient veterans employment representative to confirm the list of medications [...]
--- OUTSIDE RECORDS SUMMARY | 2016-06-22 14:05 | XMS REPORT ---
Author Author [facility], [facility] - Organization Unknown Address Unknown Phone [...]
--- OUTSIDE RECORDS SUMMARY | 2016-06-22 14:05 | XMS REPORT | Continuity of Care Document ---
Author Author [facility] Organization [facility] Address Unknown Phone Unavailable Care Team Providers Care Forestry Engineer Name Role Phone OTHER Primary Care Physician [phone] Insurance Providers Payer Name Policy Number Subscriber Name Relationship Sole [employer] [id number] Indigo Gee 16 Self Problems Medical Problems [...] F (96.8 - 99.1) Temperature (Calculated Celsius) 36.63977 degrees C (36.0 - 37.3) Pulse Rate [...] specimen been collected /obtained? Y Urine Specific [place] September 16, 2013 9:40pm >=1.030 H - [...] 2013 2:28pm Name: INDIGO GEE Unit #: [id number] : 1980 Sex: F Loc / Svc: ED DOS: 07/19/13 Signed Report #: [id number] DIAGNOSTIC IMAGING REPORT TYPE OF EXAM: CT [...] pelvis. There is a preliminary report by [facility]. . Procedures Procedure Status Date Provider(s) THER/PROPH/DIAG INJ IV PUSH completed 06/23/13 TX/PRO/DX INJ NEW DRUG ADDON completed 06/23/13 TX/PRO/DX INJ SAME DRUG TIN DIPPER completed 06/23/13 HYDRATE IV INFUSION ADD-ON completed 06/23/13 THER/PROPH/DIAG INJ IV PUSH completed 07/19/13 TX/PRO/DX INJ NEW DRUG ADDON completed 07/19/13 TX/PRO/DX INJ SAME DRUG TIN DIPPER completed 07/19/13 Encounters Encounter Location Date/Time Departed Emergency Room [facility] 09/16/13 6:52pm Departed Emergency Room [facility] 07/19/13 5:11pm Departed Emergency Room [facility] 06/23/13 7:31pm Recent Diagnosis
--- OUTSIDE RECORDS SUMMARY | 2016-06-22 14:05 | XMS REPORT | Continuity of care Document ---
[...] MG/DL (65-99 MG/DL) GFR EST NON AFR URUGUAYAN >=90 ML/MIN GFRA EST AFR AMER >=90 [...] - CT ABD/PELVIS W/ CONTRAST CPT Code(s): 25883-; ; ; INDICATION / CLINICAL HISTORY: Abdominal [...]
[2016-06-22 14:06] VITALS: Ht 167.6 cm; Wt 59.1 kg
--- OUTSIDE RECORDS SUMMARY | 2016-06-22 14:06 | XMS REPORT | Continuity of Care Document ---
Author Author [facility] Organization [facility] Address Unknown Phone Unavailable Allergies Active Description [...] MD Final 553.20 VENTRAL HERNIA NOS 03/30/2012 iTm Barber MD 789.00 ABDOMINAL PAIN-SITE NOS 03/30/2012 [...] 04/04/2012 Ye HEATON, Michela Lynch Final 968.0 POIS-COMMUNICATION LECTURER MUSCLE DEPRESS 04/04/2012 Michela Belcher MD External [...] Admitting 292.89 DRUG MENTAL DISORDER NEC 08/01/2012 Hnerry Malone MD Final 295.70 SCHIZOAFF DISORDER NOS [...] MD External E888.9 FALL NOS 09/22/2012 Jose Aljeandro Cardoza MD Final 553.21 INCISIONAL HERNIA 09/22/2012 [...] MD Final 296.80 BIPOLAR DISORDER NOS 04/11/2013 rAias Hassan MD Final 300.00 ANXIETY STATE NOS [...] 04/25/2016 F F43.10 Post-traumatic stress disorder, unspecified sJ Barnes P 04/25/2016 F G40.9 Epilepsy, unspecified Js Barnes P 04/25/2016 F F25.0 Schizoaffective disorder, bipolar type Psy , Batch Procedures Code Description [place] [address] CYSTOSCOPY Jeanne HEATON, Ayanna Jernigan 06/05/2012 06588 TLH W/T/O 250 G OR LESS Jeanne HEATON, Ayanna Jernigan 06/05/2012 10975 LAPAROSCOPY, LYSIS Jeanne HEATON, Ayanna Jernigan 06/05/2012 86.59 CLOSURE SKIN SUBCUTANEOUS NEC Charles Rene DO 09/17/2012 04.81 ANESTH INJEC PERIPH Marcos Ordonez MD 01/09/2013 47902 ASSESS HLTH/BEHAVE, INIT 12/01/2014 16011 Arina Davenport [address] Arina Davenport [address] OFFICE/OUTPATIENT VISIT, Pallavi Leal 04/16/2016 55457 Js Barnes 56505 OFFICE/OUTPATIENT VISIT, Pallavi Hudson 04/23/2016 46519 OFFICE/OUTPATIENT VISIT, Pallavi Hudson 04/23/2016 81984 Js Barnes Results Test Result Range URINALYSIS, [...] GRAVITY 1.030 1.015-1.025 UR PH 7.0 5.0-7.0 WET MOUNT - 06/03/16 10:57 Microbiology CHLAMYDIA DNA BY PCR - 06/03/16 10:57 Microbiology URINE CULTURE - 06/03/16 10:57 Microbiology UR TEST - 06/03/16 10:57 UR TEST NEGATIVE NEGATIVE URINALYSIS, ROUTINE - 06/03/16 10:57 UA LEUKOCYTE ESTERASE DIPSTICK NEGATIVE NEGATIVE UA NITRITE DIPSTICK NEGATIVE NEGATIVE UA PROTEIN DIPSTICK NEGATIVE NEGATIVE UA GLUCOSE DIPSTICK NEGATIVE NEGATIVE UA KETONE DIPSTICK NEGATIVE NEGATIVE UA UROBILINOGEN DIPSTICK NORMAL NORMAL UA BILIRUBIN DIPSTICK NEGATIVE NEGATIVE UA BLOOD DIPSTICK NEGATIVE NEGATIVE UA SPECIFIC GRAVITY 1.017 1.015-1.025 UR PH 5.0 5.0-7.0 RAPID PLASMA REAGIN - 06/03/16 11:05 RAPID PLASMA REAGIN NONREACTIVE NONREACTIVE HIV - 06/03/16 11:05 AB HIV 1 2 NEGATIVE NEGATIVE HIV 1 P24 AG NEGATIVE NEGATIVE AB HEPATITIS B SURFACE - 06/03/16 11:05 AB HEPATITIS B SURFACE NEGATIVE NEGATIVE AB HEPATITIS B SURFACE < 3.1 mIU/mL < 10.0 AG HEPATITIS B SURF. - 06/03/16 11:05 AG HEPATITIS B SURF. NEGATIVE NEGATIVE AB HEPATITIS B CORE IGM - 06/03/16 11:05 AB HEPATITIS B CORE IGM NEGATIVE NEGATIVE Encounters ACCT No. Visit Date/Time Discharge Status Pt. Type Provider Facility Loc./Unit Complaint [id number] 05/07/2013 14:05:00 2013 16:29:00 DIS Emergency Carl Nguyen MD [facility] [id number] 04/24/2013 13:15:00 2013 13:45:00 DIS Emergency Sonya HEATON [facility] [id number] 04/11/2013 12:38:00 2013 12:50:00 DIS Emergency Sonya HEATON [facility] [id number] 02/17/2013 12:08:00 2012 13:30:00 DIS Emergency Arias Hassan MD [facility] [id number] 02/06/2013 20:39:00 2012 00:04:00 DIS Emergency Selvin Tom MD [facility] [id number] 01/28/2013 23:04:00 2012 23:51:00 DIS Emergency Adam Bradshaw III, MD [facility] [id number] 01/28/2013 16:01:00 2012 18:50:00 DIS Emergency Han Bob MD [facility] [id number] 11/08/2012 10:31:00 2012 12:54:00 DIS Emergency Paulino HEATON, Han Ritter [facility] [id number] 09/22/2012 06:42:00 2012 09:30:00 DIS Inpatient Jose Alejandro Cardoza MD [place] [id number] 09/20/2012 13:30:00 2012 16:06:00 DIS Emergency Elsa Adair MD [facility] [id number] 09/07/2012 16:29:00 2012 16:58:00 DIS Emergency Sonya HEATON, Arias [facility] [id number] 09/04/2012 10:43:00 2012 12:40:00 DIS Emergency Cuauhtemoc Alvarez DO [facility] [id number] 08/01/2012 15:14:00 2012 20:15:00 DIS Outpatient Henrry Malone MD [address] [id number] 08/01/2012 04:29:00 2012 09:05:00 DIS Emergency Selvin Tom MD [facility] [id number] 06/22/2012 11:00:00 2012 14:59:00 DIS Emergency Chente Isbell MD [facility] [id number] 06/14/2012 17:56:00 2012 00:19:00 DIS Emergency Cuauhtemoc Alvarez DO [facility] [id number] 06/11/2012 14:30:00 2012 17:47:00 DIS Emergency Caesar Florence MD [facility] [id number] 06/09/2012 01:40:00 2012 04:18:00 DIS Emergency Selvin Tom MD [facility] [id number] 06/08/2012 07:36:00 2012 10:03:00 DIS Emergency Elsa Adair MD [facility] [id number] 06/05/2012 05:25:00 2012 11:39:00 DIS Outpatient Jeanne HEATON, Ayanna G [facility] [place] [id number] 06/02/2012 13:46:00 2012 23:59:59 CLS Outpatient Jeanne HEATON, Ayanna Jernigan [facility] [id number] 05/20/2012 14:00:00 2012 23:59:59 CLS Outpatient Henrry Malone MD [facility] [id number] 05/15/2012 11:40:00 2012 13:55:00 DIS Emergency Han Bob MD [facility] [id number] 05/11/2012 13:16:00 2012 14:36:00 DIS Emergency Sonya HEAOTN, [facility] [id number] 05/10/2012 14:16:00 2012 15:45:00 DIS Emergency Sonya HEATON, [facility] [id number] 05/06/2012 13:45:00 2012 15:27:00 DIS Emergency Flynn Mittal DO [facility] [id number] 05/04/2012 09:47:00 2012 11:25:00 DIS Emergency Adam Bradshaw III, MD [facility] [id number] 04/25/2012 18:48:00 2012 20:20:00 DIS Emergency Harvinder Renee MD [facility] [id number] 04/24/2012 16:58:00 2012 20:07:00 DIS Emergency Hever Brown MD [facility] [id number] 04/16/2012 12:07:00 2012 15:48:00 DIS Emergency Elsa Adair MD [facility] [id number] 04/09/2012 15:19:00 2012 18:08:00 DIS Emergency Bashir Simons MD [facility] [id number] 04/04/2012 05:46:00 2012 14:58:00 ACT Outpatient Ye HEATON, Michela Lynch [facility] [id number] 04/02/2012 16:19:00 2012 19:20:00 DIS Emergency Caesar Florence MD [facility] [id number] 03/30/2012 19:22:00 2012 21:40:00 DIS Emergency Tim Barber MD [facility] [id number] 03/30/2012 12:44:00 2012 19:20:00 DIS Emergency Harvinder Renee MD [facility] [id number] 03/12/2012 17:25:00 2012 19:33:00 DIS Emergency Sonya HEATON, Arias [facility] [place] [id number] 02/25/2012 15:29:00 2012 23:59:59 CLS Emergency [id number] 05/16/2012 13:54:00 Document Registration
[2016-06-22] MEDS ORDERED: NORMAL SALINE 1,000 ML IV ONE (14:26)
[2016-06-22] MEDS ORDERED: KETOROLAC 30mg/ml INJECTION IV ONE (14:30)
[2016-06-22] MEDS ORDERED: HYDROMORPHONE 2mg/ml INJECTION IV ONE (14:30)
[2016-06-22] MEDS ORDERED: ONDANSETRON 4mg/2ml INJECTION IV ONE (14:30)
--- NOTE | 2016-06-22 14:33 | ERPDOC ---
Departure Disposition Decision Date: June 22, 2016 Disposition Decision Time: 16:20 Disposition: 01 DISCHARGED HOME, SELF-CARE Impression Impression Impression: Primary Impression: ABDOMINAL PAIN - ACUTE ON CHRONIC Additional Impression: Elevated lipase Severity: Moderate Condition: Improved Seen By: Physician only Patient Instructions: Acute Nausea and Vomiting (ED), Gastroenteritis (ED), Pancreatitis (ED) Problems/Meds/Labs Reviewed?: Yes Medications reviewed and manag: Yes Additional Instructions: Clear liquids for 48 hours, then gradually increase diet as tolerated. Avoid fatty foods. Follow up care ordered?: Yes Scripts Ondansetron (Zofran Odt) 4 Mg Tab.rapdis 4 MG PO Q6HR for NAUSEA, #30 TAB Oral disintegrating tablet Prov: AMY BAPTISTE MD 06/22/16 Hydrocodone/Acetaminophen (Sparkill 5-325 Tablet) 5-325 Tablet 1 TAB PO QID Y for PAIN, #10 Prov: AMY BAPTISTE MD 06/22/16 HPI - Abdominal Pain General Chief Complaint: Nausea,Vomiting,Diarrhea Stated Complaint: N/V, DIARREAH Time Seen by Provider: 14:06 HPI - Abdominal Pain Initial Comments 36-year-old female vomiting and diarrhea for one week. She is not able to eat food, has been keeping some juice and water down, but states that everything else gets thrown up. She has had less than normal urine. No fever no chills, no nausea, no one else at home is sick. She states that she had abdominal surgery when she was young that it opened up afterward and took a long time to heal. She continues to have pain from a hernia associated with the surgery and has been on Sparkill and Percocet for it. States she ran out about a month ago and has not had time to go and see her doctor yet to get another prescription. She plans to go in the next week or so and get it done. Allergies: Coded Allergies: Penicillins (Verified Allergy, Unknown, 05/25/16) tramadol (Verified Allergy, Unknown, 05/25/16) Past History Past Medical History Hx Echocardiogram: No Respiratory: asthma GI: other Neurological: seizures Musculoskeletal: back pain Psychological: anxiety, depression Surgical History General: exploratory laparotomy, other Reproductive/: , hysterectomy, tubal ligation Family History Family PMH: FOUND: hypertension Vaccines Hx Influenza Vaccination: Yes (FALL 2012) Social History Smoking Status: Never smoker # of Packs/Tins per Day: 0.5 Substance Use Type: does not use Alcohol Intake: none Sexuality: male partner Record Review Pertinent history updated: Yes Review of Systems GI Upper Abdomen: see HPI General: see HPI Physical Exam General General Nourishment: well nourished, well developed, appears stated age, no acute distress General Body Habitus: well groomed Vitals and Pain First Documented Vital Signs Date Time Temp Pulse Resp B/P Pulse Ox O2 Delivery O2 Flow Rate FiO2 06/22/16 14:06 98.0 92 16 127/63 99 Room Air Weight: Kilograms: 59.100 Height (feet): 5 Height (inches): 6.00 Triage Pain Scale: Normal Exams: Head: Normocephalic w/o trauma Eyes: Pupils are PERRLA w/ EOMI, No scleral icterus, irritation, or foreign bodies noted Chest/Resp: Clear all morrow, with good airflow, and symmetry bilaterally CV: Regular rate and rhythm, without murmur or gallop, Pulses 2+ all extremities, capillary refill, <2 seconds all ext., no pedal edema noted Neurologic: Patient is alert, and oriented, cranial nerves, motor/sensory/ cerebellar, exams w/o gross deficits, to observation Psychiatric: Patient exhibits, appropriate attention, emotion and affect Abdomen (brief) Comments Bowel sounds slightly hyperactive, no masses palpable. Patient has significant ventral scarring of the stomach with obvious dehiscence and healing by secondary intent. She is tender midepigastric and right upper quadrant. Differential Diagnoses Considering: Biliary Colic, Bowel Obstruction, Cholecystitis, Gastroenteritis, Pancreatitis Progress Results/Orders Orders Procedure Category Date Status Time Iv Lock (Ed Only) EDM 06/22/16 Transmitted 14:26 Nothing By Mouth (Ed EDM 06/22/16 Transmitted Only) 14:26 Cbc W/Auto LAB 06/22/16 Complete Diff-Reflex Manual 14:26 Cmp - Comprehensive LAB 06/22/16 Complete Metabolic 14:26 Lipase LAB 06/22/16 Complete 14:26 Ua, Dip Wreflex LAB 06/22/16 Complete Microsc & Storage Receipt Poster 14:26 Kub W/Upright RAD 06/22/16 Resulted 14:26 Normal Saline (Normal PHA 06/22/16 Complete Saline Iv) 14:26 Hydromorphone PHA 06/22/16 Complete (Dilaudid) 14:30 Ondansetron Inj PHA 06/22/16 Complete (Zofran) 14:30 Ketorolac (Toradol) PHA 06/22/16 Complete 14:30 C-Reactive Protein - LAB 06/22/16 Complete CRP 14:36 Iohexol (Omnipaque) PHA 06/22/16 Complete 15:27 Normal Saline (Ns) PHA 06/22/16 Complete 15:27 Saline Flush (Iv PHA 06/22/16 Complete Flush) 15:27 Ct Abd/Pelvis CT 06/22/16 Resulted W/Contrast Only Lab Results Laboratory Tests Test 06/22/16 14:43 06/22/16 14:44 White Blood Count 6.1T/MM3 Red Blood Count 4.14M/MM3 Hemoglobin 13.0GM/DL Hematocrit 38.2% Mean Corpuscular Volume 92.3UM3 Mean Corpuscular Hemoglobin 31.4UUG Mean Corpuscular Hemoglobin Concent 34.0GM/DL RDW Standard Deviation 40.5FL Platelet Count 197T/MM3 Mean Platelet Volume 10.8UM3 Immature Granulocyte % (Auto) 0.0% Neutrophils (%) (Auto) 41.1% Lymphocytes (%) (Auto) 49.4% Monocytes (%) (Auto) 5.4% Eosinophils (%) (Auto) 3.8% Basophils (%) (Auto) 0.3% Absolute Immature Granulocyte (auto 0.00T/MM3 Absolute Neutrophils (auto) 2.5T/MM3 Absolute Lymphocytes (auto) 3.0T/MM3 Absolute Monocytes (auto) 0.3T/MM3 Absolute Eosinophils (auto) 0.2T/MM3 Absolute Basophils (auto) 0.0T/MM3 Turbidity < 20 Sodium Level 146MEQ/L Potassium Level 3.7MEQ/L Chloride Level 108MEQ/L Carbon Dioxide Level 26MEQ/L Anion Gap 12MEQ/L Blood Urea Nitrogen 11.0MG/DL Creatinine 0.7MG/DL Glomerular Filtration Rate Calc 94 BUN/Creatinine Ratio 16RATIO Glucose Level 92MG/DL Calculated Osmolality 280MOSM/KG Calcium Level 9.2MG/DL Total Bilirubin 0.50MG/DL Icterus Index < 2 Aspartate Amino Transf (AST/SGOT) 15U/L Alanine Aminotransferase (ALT/SGPT) 33U/L Alkaline Phosphatase 62U/L C-Reactive Protein < 5.0MG/L Total Protein 6.5G/DL Albumin 4.3G/DL Globulin 2.2G/DL Albumin/Globulin Ratio 2.0RATIO Lipase 318U/L Chemistry Specimen Hemolysis < 15 Urine Collection Type Cleancatch-midstream Urine Color Yellow Urine Turbidity Clear Urine pH 6.0 Urine Specific [place] <=1.005 Urine Protein Negative Urine Glucose (UA) Negative Urine Ketones Negative Urine Blood Negative Urine Nitrite Negative Urine Bilirubin Negative Urine Urobilinogen 0.2EU/DL Urine Leukocyte Esterase Negative Urinalysis Comment Microscopic not ind. Medications Current ED Medications Sodium Chloride (Normal Saline IV) 1,000 ml @ 1,000 mls/hr Q1H ONCE IV Last administered on 06/22/16 14:49; Start 06/22/16 at 14:26; Stop 06/22/16 at 15:25; Status DC Hydromorphone HCl (Dilaudid) 0.5 mg O ONCE IV Last administered on 06/22/16 14 :52; Start 06/22/16 at 14:30; Stop 06/22/16 at 14:31; Status DC Ondansetron HCl (Zofran) 4 mg O ONCE IV Last administered on 06/22/16 14:51; Start 06/22/16 at 14:30; Stop 06/22/16 at 14:31; Status DC Ketorolac Tromethamine (Toradol) 30 mg O ONCE IV Last administered on 14:51; Start 06/22/16 at 14:30; Stop 06/22/16 at 14:31; Status DC Iohexol 1 bottle 1 bottle STK-MED ONCE .ROUTE ; Start 06/22/16 at 15:27; Stop 06/22/16 at 15:28; Status DC Sodium Chloride (NS) 100 ml @ As Directed STK-MED ONCE .ROUTE ; Start 06/22/16 at 15:27; Stop 06/22/16 at 15:28; Status DC Sodium Chloride (Iv Flush) 10 ml STK-MED ONCE .ROUTE ; Start 06/22/16 at 15:27; Stop 06/22/16 at 15:28; Status DC Progress Progress Patient has normal white count, appropriate CBC with appropriate CMP. Amylase is slightly elevated at 318. Patient's symptoms may fit pancreatitis, although she does not have as much abdominal pain as I might expect. CT of abdomen did not show any atypia to the pancreas or surrounding tissues. She'll be discharged home on clear liquid diet with Zofran for nausea and a few Lortab 5' s for pain. She initially asked for Lortab tens and then tried to negotiate Lortab 7.5. She needs to see her physician for pain management, but this will get her through the weekend until she can get an appointment. She is to return to the emergency department if vomiting or pain increases AMY BAPTISTE MD June 22, 2016 14:33
--- NOTE | 2016-06-22 14:50 | NUR ---
XR Patient out to XR
[2016-06-22 14:52] LABS: BASOPHILS % (AUTO) 0.3 % (0-2); EOSINOPHILS # (AUTO) 0.2 T/MM3 (0-0.5); EOSINOPHILS % (AUTO) 3.8 % (0-4); HCT - HEMATOCRIT 38.2 % (36-46); LYMPHOCYTES % (AUTO) 49.4 % (23-45); MEAN CORPUSCULAR HGB 31.4 UUG (26-34); MEAN CORPUSCULAR VOLUME 92.3 UM3 (80-100); MEAN PLATELET VOLUME 10.8 UM3 (9.4-12.4); MONOCYTES # (AUTO) 0.3 T/MM3 (0-0.8); MONOCYTES % (AUTO) 5.4 % (0-9.0); NEUTROPHILS #(AUTO)-ABSOLUTE 2.5 T/MM3 (1.8-7.7); NEUTROPHILS % (AUTO) 41.1 % (33-66); RED BLOOD COUNT 4.14 M/MM3 (4.00-5.20); WBC - WHITE BLOOD COUNT 6.1 T/MM3 (4.5-11.0)
[2016-06-22 14:52] LABS: BLOOD, URINE NEGATIVE (NEGATIVE); COLOR,URINE YELLOW (YELLOW); LEUKOCYTE ESTERASE ,URINE NEGATIVE (NEGATIVE); NITRITE,URINE NEGATIVE (NEGATIVE); UROBILINOGEN,URINE 0.2 EU/DL (NORMAL)
--- OUTSIDE RECORDS SUMMARY | 2016-06-22 14:54 | XMS REPORT ---
Author Author [place], [facility] - Organization Unknown Address Unknown [...] the responsibility of the patient or patient education courses sales representative to confirm the list of [...]
--- OUTSIDE RECORDS SUMMARY | 2016-06-22 14:55 | XMS REPORT | Continuity of care Document ---
[...] MG/DL (65-99 MG/DL) GFR EST NON AFR IRANIAN >=90 ML/MIN GFRA EST AFR AMER >=90 [...] - CT ABD/PELVIS W/ CONTRAST CPT Code(s): 18864-; ; ; INDICATION / CLINICAL HISTORY: Abdominal [...]
--- OUTSIDE RECORDS SUMMARY | 2016-06-22 14:55 | XMS REPORT ---
Author Author [place]/[facility], [facility] - Organization Unknown Address Unknown [...] the responsibility of the patient or patient mortician supplies sales representative to confirm the list of [...]
--- OUTSIDE RECORDS SUMMARY | 2016-06-22 14:55 | XMS REPORT ---
Author Author [place], [facility] - Organization Unknown Address Unknown [...]
--- OUTSIDE RECORDS SUMMARY | 2016-06-22 14:55 | XMS REPORT | Continuity of Care Document ---
Author Author [facility] Organization [facility] Address Unknown Phone Unavailable Care Team Providers Care Junction Maker Name Role Phone OTHER Primary Care Physician [phone] Insurance Providers Payer Name Policy Number Subscriber Name Relationship [employer] [id number] Indigo Gee 16 Self Problems Medical Problems [...] F (96.8 - 99.1) Temperature (Calculated Celsius) 36.46356 degrees C (36.0 - 37.3) Pulse Rate [...] specimen been collected /obtained? Y Urine Specific [place] September 28, 2013 3:30pm 1.020 - Has [...] 2013 2:28pm Name: INDIGO GEE Unit #: [id number] : [id number] Sex: F Loc / Svc: ED DOS: 09/28/13 Signed Report #: [id number] DIAGNOSTIC IMAGING REPORT TYPE OF EXAM: ABDOMEN [...] ADDON completed 07/19/13 TX/PRO/DX INJ SAME DRUG SEO EXECUTIVE completed 07/19/13 THER/PROPH/DIAG INJ IV PUSH completed 09/16/13 TX/PRO/DX INJ NEW DRUG ADDON completed 09/16/13 TX/PRO/DX INJ SAME DRUG SEO EXECUTIVE completed 09/16/13 Encounters Encounter Location Date/Time Departed Emergency Room [facility] 09/28/13 1:59pm Departed Emergency Room [facility] 09/16/13 6:52pm Departed Emergency Room [facility] 07/19/13 5:11pm Recent Diagnosis
--- OUTSIDE RECORDS SUMMARY | 2016-06-22 14:55 | XMS REPORT | Continuity of Care Document ---
Author Author [facility] Organization [facility] Address Unknown Phone Unavailable Care Team Providers Care Congregational Care Pastor Name Role Phone OTHER Primary Care Physician [phone] Insurance Providers Payer Name Policy Number Subscriber Name Relationship [employer] [id number] Indigo Gee 16 Self Problems Medical Problems [...] F (96.8 - 99.1) Temperature (Calculated Celsius) 36.84874 degrees C (36.0 - 37.3) Pulse Rate [...] specimen been collected /obtained? Y Urine Specific [place] September 16, 2013 9:40pm >=1.030 H - [...] 2013 2:28pm Name: INDIGO GEE Unit #: [id number] : [id number] Sex: F Loc / Svc: ED DOS: 07/19/13 Signed Report #: [id number] DIAGNOSTIC IMAGING REPORT TYPE OF EXAM: CT [...] pelvis. There is a preliminary report by [employer]. . Procedures Procedure Status Date Provider(s) THER/PROPH/DIAG INJ IV PUSH completed 06/23/13 TX/PRO/DX INJ NEW DRUG ADDON completed 06/23/13 TX/PRO/DX INJ SAME DRUG CORRECTIONAL GUARD completed 06/23/13 HYDRATE IV INFUSION ADD-ON completed 06/23/13 THER/PROPH/DIAG INJ IV PUSH completed 07/19/13 TX/PRO/DX INJ NEW DRUG ADDON completed 07/19/13 TX/PRO/DX INJ SAME DRUG CORRECTIONAL GUARD completed 07/19/13 Encounters Encounter Location Date/Time Departed Emergency Room [facility] 09/16/13 6:52pm Departed Emergency Room [facility] 07/19/13 5:11pm Departed Emergency Room [facility] 06/23/13 7:31pm Recent Diagnosis
--- OUTSIDE RECORDS SUMMARY | 2016-06-22 14:57 | XMS REPORT | Continuity of Care Document ---
Author Author [facility] Organization [facility] Address Unknown Phone Unavailable Allergies Active Description [...] 345.90 EPILEPSY NOS W/O INTRACT 03/30/2012 Harvinder Rneee MD 789.03 RLQ ABDOMINAL PAIN 03/30/2012 Harvinder [...] Final 295.70 SCHIZOAFF DISORDER NOS 04/04/2012 Michela Beclher MD Final 300.00 ANXIETY STATE NOS 04/04/2012 Michela Belcher MD Final 301.83 BORDERLINE PERS DISORDER 04/04/2012 Ye MD, Michela L Final 305.90 DRUG ABUSE NEC-UNSPEC 04/04/2012 Ye HEATON, Michela Lynch Final 345.90 EPILEPSY NOS W/O INTRACT 04/04/2012 Ye HEATON, Michela Lynch Final 553.20 VENTRAL HERNIA NOS 04/04/2012 Ye HEATON, Michela Lynch Final 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 04/04/2012 Michela Belcher MD External [...] Procedures Code [place] [address] CYSTOSCOPY Jeanne HEATON, Ayanna Jernigan 06/05/2012 07528 TLH W/T/O 250 G OR LESS Jeanne HEATON, Ayanna Jernigan 06/05/2012 69617 LAPAROSCOPY, LYSIS Jeanne HEATON, Ayanna Jernigan 06/05/2012 86.59 CLOSURE SKIN SUBCUTANEOUS NEC Charles Rene DO 09/17/2012 04.81 ANESTH INJEC PERIPH Marcos Ordonez MD 01/09/2013 14741 ASSESS HLTH/BEHAVE, INIT 12/01/2014 60203 Arina Davenport [address]65[address] Arina Davenport [address] OFFICE/OUTPATIENT VISIT, Pallavi Leal 04/16/2016 18960 Js Barnes [address]2848 OFFICE/OUTPATIENT VISIT, Pallavi Hudson 04/23/2016 63737 OFFICE/OUTPATIENT VISIT, Pallavi Hudson 04/23/2016 15529 Js Barnes Results Test Result Range URINALYSIS, [...] Status Pt. Type Provider Facility Loc./Unit Complaint [id number] 05/07/2013 14:05:00 2013 16:29:00 DIS Emergency Carl Nguyen MD [facility] [id number] 04/24/2013 13:15:00 2013 13:45:00 DIS Emergency Sonya HEATON [facility] [id number] 04/11/2013 12:38:00 2013 12:50:00 DIS Emergency Sonya HEATON [facility] [id number] 02/17/2013 12:08:00 2012 13:30:00 DIS Emergency Arias Hassan MD [facility] [id number] 02/06/2013 20:39:00 2012 00:04:00 DIS Emergency Selvin Tom MD [facility] [id number] 01/28/2013 23:04:00 2012 23:51:00 DIS Emergency Adam Bradshaw III, MD [facility] [id number] 01/28/2013 16:01:00 2012 18:50:00 DIS Emergency Han Bob MD [facility] [id number] 11/08/2012 10:31:00 2012 12:54:00 DIS Emergency Paulino HEATON, Han Ritter [facility] [id number] 09/22/2012 06:42:00 2012 09:30:00 DIS Inpatient Jose Alejandro Cardoza MD [place] [address] [id number] 09/20/2012 13:30:00 2012 16:06:00 DIS Emergency Elsa Adair MD [facility] [id number] 09/07/2012 16:29:00 2012 16:58:00 DIS Emergency Sonya HEATON, Arias [facility] [id number] 09/04/2012 10:43:00 2012 12:40:00 DIS Emergency Cuauhtemoc Alvarez DO [facility] [id number] 08/01/2012 15:14:00 2012 20:15:00 DIS Outpatient Henrry Malone MD [address] [id number] 08/01/2012 04:29:00 2012 09:05:00 DIS Emergency Selvin Tom MD [facility] [id number] 06/22/2012 11:00:00 2012 14:59:00 DIS Emergency Chente Isbell MD [facility] [id number] 06/14/2012 17:56:00 2012 00:19:00 DIS Emergency Cuauhtemoc Alvarez DO [facility] [id number] 06/11/2012 14:30:00 2012 17:47:00 DIS Emergency Caesar Florence MD [facility] [id number] 06/09/2012 01:40:00 2012 04:18:00 DIS Emergency Selvin Tom MD [facility] [id number] 06/08/2012 07:36:00 2012 10:03:00 DIS Emergency Elsa Adair MD [facility] [id number] 06/05/2012 05:25:00 2012 11:39:00 DIS Outpatient Jeanne HEATON, Ayanna G [facility] [address] [id number] 06/02/2012 13:46:00 2012 23:59:59 CLS Outpatient Jeanne HEATON, Ayanna Jernigan [facility] [address] [id number] 05/20/2012 14:00:00 2012 23:59:59 CLS Outpatient Henrry Malone MD [facility] [id number] 05/15/2012 11:40:00 2012 13:55:00 DIS Emergency Han Bob MD [facility] [id number] 05/11/2012 13:16:00 2012 14:36:00 DIS Emergency Sonya HEATON, [facility] [id number] 05/10/2012 14:16:00 2012 15:45:00 DIS Emergency Sonya HEATON, [facility] [id number] 05/06/2012 13:45:00 2012 15:27:00 DIS Emergency Flynn Mittal DO [facility] [id number] 05/04/2012 09:47:00 2012 11:25:00 DIS Emergency Adam Bradshaw III, MD [facility] [id number] 04/25/2012 18:48:00 2012 20:20:00 DIS Emergency Harvinder Renee MD [facility] [id number] 04/24/2012 16:58:00 2012 20:07:00 DIS Emergency Hever Brown MD [facility] [id number] 04/16/2012 12:07:00 2012 15:48:00 DIS Emergency Elsa Adair MD [facility] [id number] 04/09/2012 15:19:00 2012 18:08:00 DIS Emergency Bashir Simons MD [facility] [id number] 04/04/2012 05:46:00 2012 14:58:00 ACT Outpatient Ye HEATON, Michela Lynch [facility] [id number] 04/02/2012 16:19:00 2012 19:20:00 DIS Emergency Caesar Florence MD [facility] [id number] 03/30/2012 19:22:00 2012 21:40:00 DIS Emergency Tim Barber MD [facility] [id number] 03/30/2012 12:44:00 2012 19:20:00 DIS Emergency Harvinder Renee MD [facility] [id number] 03/12/2012 17:25:00 2012 19:33:00 DIS Emergency Sonya HEATON, Arias [facility] [address] [id number] 02/25/2012 15:29:00 2012 23:59:59 CLS Emergency [id number] 05/16/2012 13:54:00 Document Registration
--- NOTE | 2016-06-22 15:10 | NUR ---
XR Patient returns
[2016-06-22 15:16] LABS: ALBUMIN 4.3 G/DL (3.5-5.0); ALKALINE PHOSPHATASE 62 U/L (38-126); ALT (SGPT) 33 U/L (9-52); ANION GAP 12 MEQ/L (5-15); AST (SGOT) 15 U/L (14-36); BUN/CREATININE RATIO 16 RATIO (6-26); C-REACTIVE PROTEIN < 5.0 MG/L (0-9); CALCIUM 9.2 MG/DL (8.4-10.2); CHLORIDE 108 MEQ/L (98-107); CO2 - CARBON DIOXIDE 26 MEQ/L (22-30); CREATININE 0.7 MG/DL (0.7-1.2); GLOMERULAR FILTRATION RATE 94; GLUCOSE 92 MG/DL (65-110); LIPASE 318 U/L (23-300); POTASSIUM 3.7 MEQ/L (3.6-5); SODIUM 146 MEQ/L (134-144); TOTAL PROTEIN 6.5 G/DL (6.3-8.2)
--- NOTE | 2016-06-22 15:17 | DI ---
Indication: ITS.REASON: abdominal pain PROCEDURE: KUB W/UPRIGHT: Encounter: Initial Comparison: CT abdomen and pelvis dated May 25, 2016 Findings: The visualized lung bases are clear. There is no free air on the upright view. The bowel gas pattern is nonobstructive and nonspecific. Gas is seen in nondilated small and large bowel to the level of the rectum. Moderate stool is seen throughout the colon. The bony structures are grossly unremarkable. Surgical clips projecting over the upper pelvis. Surgical suture in the pelvis. Impression: Nonobstructive nonspecific bowel gas pattern. .
[2016-06-22] MEDS ORDERED: NORMAL SALINE 100 ML ONE (15:27)
[2016-06-22] MEDS ORDERED: IOHEXOL 300 MG/ML 100ml INJECTION ONE (15:27)
[2016-06-22] MEDS ORDERED: SALINE FLUSH 10ml SYRINGE ONE (15:27)
--- NOTE | 2016-06-22 15:27 | NUR ---
CT Patient out to CT
--- NOTE | 2016-06-22 15:41 | NUR ---
CT Patient returns from CT
--- NOTE | 2016-06-22 15:57 | DI ---
Indication: ITS.REASON: n/v PROCEDURE: CT ABD/PELVIS W/CONTRAST ONLY: Encounter: Initial Comparison: May 25, 2016 Technique: Axial CT images were performed through the abdomen and pelvis after the administration of intravenous contrast. Coronal and sagittal two-dimensional reformats. Automated Exposure Control and Iterative Reconstruction dose reducing techniques were utilized. Contrast: Omnipaque 300 89 mL Findings: The lung bases are clear. The liver appears normal. Gallbladder is within normal limits. The spleen, pancreas and adrenal glands are normal. Kidneys are normal. Ventral abdominal wall defect redemonstrated. Retroaortic left renal vein noted incidentally. No abdominal or pelvic lymphadenopathy. Bladder is normal. Uterus is surgically absent. Postoperative changes in the rectosigmoid colon region. No evidence of a bowel obstruction. Prior colon resection. Bone windows are unremarkable. Impression: Overall stable appearance of the abdomen and pelvis without acute disease process. .
[2016-06-22] MEDS ORDERED: ONDA4TAB7 PO (16:23)
[2016-06-22] MEDS ORDERED: HYDR-4246 PO (16:23)
[2016-06-22 16:25] VITALS: BP 119/59; PULSE 81; RESP 16; TEMP 98; O2SAT 98
--- NOTE | 2016-06-22 19:05 | NUR ---
[facility], PHARMACIST CALLED INQUIRING NEED TO FILL NORCO 5 RX THAT PT RECEIVED FROM THIS ER TODAY DUE TO OXYCODONE 5MG RX PT RECEIVED/FILLED 06/07 FOR A 30 DAY SUPPLY (60 PILLS). SPOKE WITH DR LIU, DR LIU REQUESTS CONTACT OF DR BAPTISTE FOR ANSWER.
--- NOTE | 2016-06-22 19:09 | NUR ---
INFORMATION INFORMED DR BAPTISTE OF PHARMACY INQUIRY. PER DR BAPTISTE, "DO NOT FILL RX, RIP IT UP."
--- NOTE | 2016-06-22 19:11 | NUR ---
[facility] CONTACTED AGAIN TO RELAY DECISION FROM DR BAPTISTE. SPOKE WITH ILENE SUPERINTENDENT FOR [employer] PHARMACIST. REPORTED DECISION TO NOT FILL RX.
== END 2016-06-22 16:25 | disposition home or self-care (01) ==
LOC: ED 14:00
DX: R11.2 Nausea with vomiting, unspecified (principal); R19.7 Diarrhea, unspecified; R74.8 Abnormal levels of other serum enzymes; R10.10 Upper abdominal pain, unspecified; G89.29 Other chronic pain
CPT/HCPCS: 36000; 74020; 74177; 80053; 81003; 83690; 85025; 86140; 96361; 96374; 96375; 99284; J1170; J1885; J2405; J7030; J7050; Q9967